=== PATIENT | female | born 1975 ===

== ENCOUNTER 2024-10-04 09:26 | Observation (INO) | payer OTHER ==
[2024-10-04 10:09] LABS: Basophils % (A) 1 %; Eosinophils # (A) 0.2 k/uL (0-0.7); Eosinophils % (A) 3 %; HCT 42.7 % (34.0-46.0); HGB 14.4 gm/dL (11.4-16.0); Lymphocytes # (A) 2.6 k/uL (1.0-4.8); Lymphocytes % (A) 35 %; MCH 28.8 pg (25.0-35.0); MCHC 33.8 g/dL (31.0-37.0); MCV 85.2 fL (80.0-100.0); Mean Platelet Volume 8.6; Monocytes # (A) 0.3 k/uL (0-1.0); Monocytes % (A) 4 %; Neutrophils # (A) 4.2 k/uL (1.3-7.7); Neutrophils % (A) 57 %; Platelet Count 241 k/uL (150-450); RBC 5.01 m/uL (3.80-5.40); RDW 12.6 % (11.5-15.5); WBC 7.3 k/uL (3.8-10.6)
--- NOTE | 2024-10-04 10:17 | XR ---
2 view chest HISTORY: Dysrhythmia. COMPARISON: None TECHNIQUE: PA and lateral views chest obtained. FINDINGS: The lungs are clear of consolidative, interstitial or masslike opacity. There is no pleural effusion, pleural thickening or pneumothorax. The heart, pulmonary vasculature, mediastinum and yadi are within normal limits. The osseous structures and soft tissues of the thorax are intact. IMPRESSION: No significant abnormality. No acute cardiopulmonary disease. [facility], , 10/04/2024 10:14 AM
[2024-10-04 10:19] LABS: Partial Thromboplastin Time 23.9 sec (22.0-30.0); Prothrombin Time 10.8 sec (10.0-12.5)
[2024-10-04 10:23] LABS: ALT 31 U/L (4-34); AST 21 U/L (14-36); African American GFR (CKD) >90 (>60 ml/min/1.73 sqM); Albumin 4.7 g/dL (3.5-5.0); Alkaline Phosphatase 98 U/L (38-126); Anion Gap 8 mmol/L; Blood Urea Nitrogen 12 mg/dL (7-17); Calcium 9.4 mg/dL (8.4-10.2); Carbon Dioxide 24 mmol/L (22-30); Chloride 108 mmol/L (98-107); Glucose 117 mg/dL (74-99); Non-African American GFR(CKD) >90 (>60 ml/min/1.73 sqM); Potassium 3.8 mmol/L (3.5-5.1); Sodium 140 mmol/L (137-145); Total Bilirubin 0.7 mg/dL (0.2-1.3); Total Protein 7.8 g/dL (6.3-8.2)
[2024-10-04] MEDS ORDERED: NITROGLYCERIN SL TABS 0.4 MG TAB SUBLINGUAL PRN (11:23)
--- NOTE | 2024-10-04 11:23 | ED ---
Arrhythmia/Palpitations HPI - General Chief Complaint: Arrhythmia/Palpitations Stated Complaint: Chest pain,heart palp. Time Seen by Provider: 10/04/24 09:40 Source: patient, family, RN notes reviewed Mode of arrival: ambulatory Limitations: language barrier - History of Present Illness Initial Comments: 49-year-old female presents emergency department chief complaint of chest discomfort, palpitations. Patient states she denies does not feel well she has left-sided symptoms. She also complains of tingling of her upper and lower extremities bilaterally. Denies any focal weakness. Patient states she has had some issues in the past which her potassium was low. She does take multiple supplements she does have a history of hypertension. Denies any prior cardiac stents. - Related Data Home Medications Medication Instructions Recorded Confirmed Cholecalciferol (Vitamin D3) 50 mcg PO DAILY 10/04/24 10/04/24 [Vitamin D3 (50 Mcg = 2000 Iu)] Cyanocobalamin (Vitamin B-12) 1,000 mcg PO DAILY 10/04/24 10/04/24 [Vitamin B-12] Magnesium Oxide [Mag-Ox] 250 mg PO BID 10/04/24 10/04/24 amLODIPine [Norvasc] 10 mg PO DAILY 10/04/24 10/04/24 Allergies Allergy/AdvReac Type Severity Reaction Status Date / Time No Known Allergies Allergy Verified 10/04/24 12:16 Review of Systems ROS Statement: Those systems with pertinent positive or pertinent negative responses have been documented in the HPI. ROS Other: All systems not noted in ROS Statement are negative. Past Medical History Past Medical History: Hypertension Past Surgical History: Section Smoking Status: Never smoker Past Alcohol Use History: None Reported Past Drug Use History: None Reported General Exam Limitations: language barrier General appearance: alert, in no apparent distress Head exam: Present: atraumatic, normocephalic, normal inspection Eye exam: Present: normal appearance, PERRL, EOMI. Absent: scleral icterus, conjunctival injection, periorbital swelling ENT exam: Present: normal exam, normal oropharynx, mucous membranes moist Neck exam: Present: normal inspection. Absent: tenderness, meningismus, l ymphadenopathy Respiratory exam: Present: normal lung sounds bilaterally. Absent: respiratory distress, wheezes, rales, rhonchi, stridor Cardiovascular Exam: Present: regular rate, normal rhythm, normal heart sounds. Absent: systolic murmur, diastolic murmur, rubs, gallop, clicks GI/Abdominal exam: Present: soft, normal bowel sounds. Absent: distended, tenderness, guarding, rebound, rigid Course Vital Signs 10/04/24 10/04/24 10/04/24 09:34 10:02 10:10 Temperature 98.4 F 98.7 F Pulse Rate 80 81 Pulse Rate [ 78 Mainstreaming Facilitator ] Respiratory 18 16 Rate Blood Pressure 125/79 129/80 O2 Sat by Pulse 100 99 Oximetry 10/04/24 10/04/24 10/04/24 11:02 12:05 13:13 Temperature 98.1 F 97.7 F Pulse Rate 75 78 74 Pulse Rate [ Mainstreaming Facilitator ] Respiratory 16 16 16 Rate Blood Pressure 120/73 122/72 112/71 O2 Sat by Pulse 98 99 98 Oximetry EKG Findings - EKG Comments: EKG Findings:: EKG performed at 9: 51 sinus rhythm rate of 76 ND 183 QRS 96 QT/QTc 373/403 - EKG Results: EKG: interpreted by YEMI Medical Decision Making - Medical Decision Making Was pt. sent in by a medical professional or institution (, PA, USER INTERFACE DESIGNER, urgent care, hospital, or half-way...) When possible be specific @ -No Did you speak to anyone other than the patient for history (EMS, parent, family, police, friend...)? What history was obtained from this source @ -No Did you review nursing and triage notes (agree or disagree)? Why? @ -I reviewed and agree with nursing and triage notes Were old charts reviewed (outside hosp., previous admission, EMS record, old EKG, old radiological studies, urgent care reports/EKG's, half-way records)? Report findings @ -No old charts were reviewed Differential Diagnosis (chest pain, altered mental status, abdominal pain women, abdominal pain men, vaginal bleeding, weakness, fever, dyspnea, syncope, headache, dizziness, GI bleed, back pain, seizure, CVA, palpatations, mental health, musculoskeletal)? @ -Differential Chest Pain: Stable Angina, Unstable Angina, STEMI, NSTEMI Aortic Dissection, Pneumothorax, Musculoskeletal, Esophageal Spasm GERD, Cholecystitis, Pancreatitis, Zoster, this is not meant to be an all-inclusive list. EKG interpreted by me (3pts min.). @ -As above X-rays interpreted by me (1pt min.). @ -Chest x-ray shows no acute cardiopulmonary process CT interpreted by me (1pt min.). @ -None done U/S interpreted by me (1pt. min.). @ -None done What testing was considered but not performed or refused? (CT, X-rays, U/S, labs)? Why? @ -None What meds were considered but not given or refused? Why? @ -None Did you discuss the management of the patient with other professionals (professionals i.e. , PA, USER INTERFACE DESIGNER, lab, RT, psych nurse, nephrology social worker, skylights assembler, teacher, customs and border protection officer, director case)? Give summary @ -Dr. Walsh for admission Was smoking cessation discussed for >3mins.? @ -No Was critical care preformed (if so, how long)? @ -No Were there social determinants of health that impacted care today? How? (Homelessness, low income, unemployed, alcoholism, drug addiction, transporta tion, low edu. Level, literacy, decrease access to med. care, penitentiary, rehab)? @ -No Was there de-escalation of care discussed even if they declined (Discuss DNR or withdrawal of care, Hospice)? DNR status @ -No What co-morbidities impacted this encounter? (DM, HTN, Smoking, COPD, CAD, Cancer, CVA, ARF, Chemo, Hep., AIDS, mental health diagnosis, sleep apnea, morbid obesity)? @ -Hypertension Was patient admitted / discharged? Hospital course, mention meds given and route, prescriptions, significant lab abnormalities, going to OR and other pertinent info. @ -Admitted patient presented for palpitations and chest pain. Patient's workup is negative this time she will be admitted for cardiac rule out repeat laboratory studies. Undiagnosed new problem with uncertain prognosis? @ -No Drug Therapy requiring intensive monitoring for toxicity (Heparin, Nitro, Insulin, Cardizem)? @ -No Were any procedures done? @ -No Diagnosis/symptom? @ -Chest pain Acute, or Chronic, or Acute on Chronic? @ -Acute Uncomplicated (without systemic symptoms) or Complicated (systemic symptoms)? @ -Complicated Side effects of treatment? @ -No Exacerbation, Progression, or Severe Exacerbation? @ -No Poses a threat to life or bodily function? How? (Chest pain, [place], AR, pneumonia, PE, COPD, DKA, ARF, appy, cholecystitis, CVA, Diverticulitis, Homicidal, Suicidal, threat to staff... and all critical care pts) @ -Yes ACS possibility, causing cardiac arrest. - Lab Data Result diagrams: 10/04/24 09:55 10/04/24 09:55 Lab Results 10/04/24 10/04/24 10/04/24 Range/Units 09:55 09:55 09:55 WBC 7.3 (3.8-10.6) k/uL RBC 5.01 (3.80-5.40) m/uL Hgb 14.4 (11.4-16.0) gm/dL Hct 42.7 (34.0-46.0) % MCV 85.2 (80.0-100.0) fL MCH 28.8 (25.0-35.0) pg MCHC 33.8 (31.0-37.0) g/dL RDW 12.6 (11.5-15.5) % Plt Count 241 (150-450) k/uL MPV 8.6 Neutrophils % 57 % Lymphocytes % 35 % Monocytes % 4 % Eosinophils % 3 % Basophils % 1 % Neutrophils # 4.2 (1.3-7.7) k/uL Lymphocytes # 2.6 (1.0-4.8) k/uL Monocytes # 0.3 (0-1.0) k/uL Eosinophils # 0.2 (0-0.7) k/uL Basophils # 0.0 (0-0.2) k/uL PT 10.8 (10.0-12.5) sec INR 1.0 (<1.2) APTT 23.9 (22.0-30.0) sec Sodium 140 (137-145) mmol/L Potassium 3.8 (3.5-5.1) mmol/L Chloride 108 H (98-107) mmol/L Carbon Dioxide 24 (22-30) mmol/L Anion Gap 8 mmol/L BUN 12 (7-17) mg/dL Creatinine 0.55 (0.52-1.04) mg/dL Est GFR (CKD-EPI)AfAm >90 (>60 ml/min/1.73 sqM) Est GFR (CKD-EPI)NonAf >90 (>60 ml/min/1.73 sqM) Glucose 117 H (74-99) mg/dL Calcium 9.4 (8.4-10.2) mg/dL Magnesium 2.0 (1.6-2.3) mg/dL Total Bilirubin 0.7 (0.2-1.3) mg/dL AST 21 (14-36) U/L ALT 31 (4-34) U/L Alkaline Phosphatase 98 (38-126) U/L Troponin I (0.000-0.034) ng/mL Total Protein 7.8 (6.3-8.2) g/dL Albumin 4.7 (3.5-5.0) g/dL TSH 1.550 (0.465-4.680) mIU/L 10/04/24 10/04/24 Range/Units 09:55 10:25 WBC (3.8-10.6) k/uL RBC (3.80-5.40) m/uL Hgb (11.4-16.0) gm/dL Hct (34.0-46.0) % MCV (80.0-100.0) fL MCH (25.0-35.0) pg MCHC (31.0-37.0) g/dL RDW (11.5-15.5) % Plt Count (150-450) k/uL MPV Neutrophils % % Lymphocytes % % Monocytes % % Eosinophils % % Basophils % % Neutrophils # (1.3-7.7) k/uL Lymphocytes # (1.0-4.8) k/uL Monocytes # (0-1.0) k/uL Eosinophils # (0-0.7) k/uL Basophils # (0-0.2) k/uL PT (10.0-12.5) sec INR (<1.2) APTT (22.0-30.0) sec Sodium (137-145) mmol/L Potassium (3.5-5.1) mmol/L Chloride (98-107) mmol/L Carbon Dioxide (22-30) mmol/L Anion Gap mmol/L BUN (7-17) mg/dL Creatinine (0.52-1.04) mg/dL Est GFR (CKD-EPI)AfAm (>60 ml/min/1.73 sqM) Est GFR (CKD-EPI)NonAf (>60 ml/min/1.73 sqM) Glucose (74-99) mg/dL Calcium (8.4-10.2) mg/dL Magnesium (1.6-2.3) mg/dL Total Bilirubin (0.2-1.3) mg/dL AST (14-36) U/L ALT (4-34) U/L Alkaline Phosphatase (38-126) U/L Troponin I <0.012 <0.012 (0.000-0.034) ng/mL Total Protein (6.3-8.2) g/dL Albumin (3.5-5.0) g/dL TSH (0.465-4.680) mIU/L Disposition Clinical Impression: Chest pain Disposition: ADMITTED IP TO THIS HOSP Condition: Fair Time of Disposition: 11:23
[2024-10-04] MEDS: ASPIRIN 81 MG PO STA (11:28)
--- NOTE | 2024-10-04 13:10 | P.HPIM ---
History of Present Illness H&P Date: 10/04/24 History of Presenting Illness: Patient is a pleasant 49-year-old female with a past medical history of hypertension. She presented to the emergency department with a chief complaint of chest pain and palpitations. Patient is primarily Vietnamese speaking and per her request her son is at bedside and daughter on telephone via [employer] translating. Patient was offered mopper services but declined at this time. She reports that she began having palpitations and feeling as though her heart was racing 2 days ago accompanied by chest tightness and numbness/tingling in bilateral upper and lower extremities. She reports the symptoms wax and wane and initially awoken her from sleep. She denied anything making the symptoms better or worse and denied history of this ever happening in the past. Patient denies having any fevers, chills, headache, lightheadedness, dizziness, diaphoresis, shortness of breath, cough or congestion, nausea or vomiting, or experiencing any swelling in her lower extremities. On arrival to our facility, patient underwent evaluation in the emergency department. Vital signs upon arrival show blood pressure 125/79, heart rate 80, respiratory rate 18, temp 98.4 F, and SpO2 100% on room air. EKG completed showing normal sinus rhythm with occasional PVC at 76 bpm otherwise showing no significant T wave or ST abnormalities and no signs of acute ischemia. Chest x-ray completed negative for acute cardiopulmonary process. Labs completed and reviewed. CBC unremarkable. Coagulation profile normal findings. BMP showing mild hyperchloremia with chloride of 108 otherwise normal findings. Blood glucose 117. Magnesium 2.0. Liver profile normal findings. Troponin negative at less than 0.012 and TSH also normal findings at 1.550. Patient was given aspirin 324 mg p.o. x 1 dose and admitted under our services for cardiac observation with consult to cardiology. Review of systems: Pertinent positives and negatives as discussed in HPI, a complete review of systems was performed and all other systems are negative. Physical exam: Vital signs reviewed and stable. General: Nontoxic, no distress and appears stated age. Derm: Skin warm and dry, normal coloration for ethnicity. Head: Atraumatic, normocephalic and symmetric. Eyes: EOM's intact, no lid lag, and anicteric sclera Mouth: no lip lesions, mucus membranes moist Cardiovascular: regular rate and rhythm with normal S1S2, no murmur, positive posterior tibial pulses bilaterally, and cap refill < 2 seconds. Lungs: Respirations even, regular, and unlabored on room air. Lungs CTA bilaterally, no rhonchi, no rales, no wheezing, and no accessory muscle usage. Abdominal: soft, nontender to palpation, no guarding, no appreciable organomegaly Ext: ROM intact. No gross muscle atrophy, no edema, no contractures Neuro: Speech clear, face symmetrical and CN II-XII grossly intact with no noted focal neuro deficits Psych: Alert and oriented to person, place, time, and situation. Appropriate and pleasant affect. Assessment and Plan of Care: Atypical chest pain with palpitations Intermittent bilateral upper and lower extremity paresthesias Hypertension -Cardiology consulted, appreciate recommendations -Telemetry monitoring -Trend troponins -Cardiac diet, NPO at midnight -Aspirin 81 mg daily and continue amlodipine 10 mg daily. -Lipid profile with a.m. labs. -Echocardiogram -Order placed for stat serum hCG Data and imaging reviewed: As stated above in HPI The patient is admitted with an anticipated greater than 2 midnight stay for evaluation of chest pain and palpitations CODE STATUS: Full code DVT prophylaxis: Lovenox Anticipated discharge date: 24 to [address]: Home Patient was seen independently by Nurse Practitioner. This document was prepared using [employer] dictation software. Please allow for errors in truck greaser while rare they do occur. Edilberto Blum NP rendered care for this patient independently, reviewed the findings and plan as documented in the note above and agree with plan. I did not physically speak with or examine the patient on this date. Past Medical History Past Medical History: Hypertension Past Surgical History: Section Smoking Status: Never smoker Past Alcohol Use History: None Reported Past Drug Use History: None Reported Medications and Allergies Home Medications Medication Instructions Recorded Confirmed Type Cholecalciferol (Vitamin D3) 50 mcg PO DAILY 10/04/24 10/04/24 History [Vitamin D3 (50 Mcg = 2000 Iu)] Cyanocobalamin (Vitamin B-12) 1,000 mcg PO DAILY 10/04/24 10/04/24 History [Vitamin B-12] Magnesium Oxide [Mag-Ox] 250 mg PO BID 10/04/24 10/04/24 History amLODIPine [Norvasc] 10 mg PO DAILY 10/04/24 10/04/24 History Allergies Allergy/AdvReac Type Severity Reaction Status Date / Time No Known Allergies Allergy Verified 10/04/24 12:16 Physical Exam Vitals: Vital Signs Temp Pulse Pulse Resp BP Pulse Ox 10/04/24 12:05 78 16 122/72 99 10/04/24 11:02 98.1 F 75 16 120/73 98 10/04/24 10:10 98.7 F 81 16 129/80 99 10/04/24 10:02 78 10/04/24 09:34 98.4 F 80 18 125/79 100 Intake and Output 10/03/24 10/04/24 10/04/24 22:59 06:59 14:59 Other: Weight 70 kg Results CBC & Chem 7: 10/04/24 09:55 10/04/24 09:55 Labs: Abnormal Lab Results - Last 24 Hours (Table) 10/04/24 Range/Units 09:55 Chloride 108 H (98-107) mmol/L Glucose 117 H (74-99) mg/dL
[2024-10-04] MEDS: ACETAMINOPHEN TAB 325 MG TAB PO PRN (19:59)
[2024-10-04] MEDS: MAGNESIUM OXIDE 400 MG TAB PO SCH (20:01)
[2024-10-05] MEDS ORDERED: DOBUTamine DRIP for NUC MED 500 MG in DEXTROSE/WATER 1 250ML.BAG IV PRN (08:22)
[2024-10-05 08:58] LABS: HCT 40.7 % (37.2-46.3); HGB 13.6 g/dL (12.0-15.0); MCH 28.6 pg (27.0-32.0); MCHC 33.4 g/dL (32.0-37.0); MCV 85.7 FL (80.0-97.0); Mean Platelet Volume 11.7 FL (9.5-12.2); NRBC Per 100 WBC 0 X 10*3/uL (0.00-0.01); Platelet Count 215 X 10*3/uL (140-440); RBC 4.75 X 10*6/uL (4.10-5.20); RDW 12.4 % (11.5-14.5); WBC 6.63 X 10*3/uL (4.50-10.00)
[2024-10-05] MEDS ORDERED: ASPIRIN 325 MG TAB PO SCH (09:00)
[2024-10-05 09:11] LABS: ALT 22 U/L (8-44); AST 13 U/L (13-35); Albumin 4.2 g/dL (3.8-4.9); Albumin/Globulin Ratio 1.68 Ratio (1.60-3.17); Alkaline Phosphatase 107 U/L (41-126); Blood Urea Nitrogen 14.1 mg/dL (9.0-27.0); Calcium 9.1 mg/dL (8.7-10.3); Carbon Dioxide 22.1 mmol/L (21.6-31.8); Chloride 106 mmol/L (96-109); Chol/HDL Ratio 3.71 Ratio; Globulin 2.5 g/dL (1.6-3.3); Glucose 104 mg/dL (70-110); LDL Cholesterol,Calculated 102.3 mg/dL (0.0-131.0); Magnesium 2.3 mg/dL (1.5-2.4); Potassium 4.2 mmol/L (3.5-5.5); Sodium 140 mmol/L (135-145); Total Bilirubin 0.3 mg/dL (0.3-1.2); Total Protein 6.7 g/dL (6.2-8.2)
[2024-10-05] MEDS: CHOLECALCIFEROL 25 MCG (1000 IU) TABLET PO SCH (09:38)
[2024-10-05] MEDS: amLODIPine 10 MG TAB PO SCH (09:38)
[2024-10-05] MEDS: ASPIRIN 81 MG PO SCH (09:38)
[2024-10-05] MEDS: CYANOCOBALAMIN 500 MCG TAB PO SCH (09:39)
[2024-10-05] MEDS: ENOXAPARIN 40 MG/0.4 ML SYRINGE SQ SCH (09:39)
--- NOTE | 2024-10-05 10:31 | P.CRDCN ---
History of Present Illness Consult date: 10/05/24 ( ) Consult reason: chest pain History of present illness: This is a 49-year-old female with no previous cardiac history. She has a history of hypertension. She also has history of gestational diabetes. No his tory of CVA or seizures. She is a non-smoker and no caffeine use. We have been asked to evaluate the patient for chest pain. Patient presented due to pounding in her chest and tried to take Tylenol or Motrin and it did not go away. When she is eating or sleeping it seems to be more pronounced pounding. No dizziness. She did have similar symptoms about 1 year ago and found to have a low potassium. She also had possible stress test done in November and . She denies have any cough or sputum production, no fever, no blood in her stools or urine. Blood pressure 108/73, heart rate 63, pulse ox 100% on room air. Patient only speaks Greek and family member is at the bedside to a ssist in interpreting. -EKG: Sinus rhythm with no acute ST-T wave changes -Chest x-ray: No acute findings -Laboratory studies: CBC, electrolytes renal function liver function test all within normal limits. Troponins negative x 3. hCG not detected. TSH 1.55. Triglycerides 84, cholesterol 163, LDL 102. Magnesium 2.3. -Home cardiac medications: Amlodipine 10 mg daily, magnesium oxide 250 mg twice daily. Review Of Systems: At the time of my exam: CONSTITUTIONAL: Denies fever or chills. HEENT: Denies blurred vision, vision changes, or eye pain. Denies hemoptysis CARDIOVASCULAR: Denies chest pain. Denies orthopnea. Denies PND. Denies palpitations RESPIRATORY: Denies shortness of breath. GASTROINTESTINAL: Denies abdominal pain. Denies nausea or vomiting. HEMATOLOGIC: Denies bleeding disorders. GENITOURINARY: Denies any blood in urine. SKIN: Denies puritis. Denies rash. Physical examination: Gen: This is a 49-year-old female in no acute distress VS: reviewed HEENT: Head is atraumatic, normocephalic. Pupils equal, round. Sclerae is anicteric. NECK: Supple. No JVD. LUNGS: Clear to auscultation. No wheezes or rhonchi. No intercostal retractions. HEART: Regular rate and rhythm. No murmur. ABDOMEN: Soft No tenderness. EXTREMITIES: No pedal edema. No calf tenderness. NEUROLOGICAL: Patient is awake, alert and oriented x3. Assessment: Palpitations Atypical chest pain, acute coronary syndrome ruled out Hypertension Plan: Resume patient's home cardiac medications Obtain dobutamine stress echocardiogram today Obtain 2-D echocardiogram and Doppler study to assess cardiac structure and function If testing is unremarkable, patient is cleared for discharge home. Thank you kindly for this consultation. Nurse practitioner note has been reviewed, I agree with documented findings and plan of care. Patient was seen and examined. Past Medical History Past Medical History: Hypertension History of Any Multi-Drug Resistant Organisms: None Reported Past Surgical History: Section Past Anesthesia/Blood Transfusion Reactions: No Reported Reaction Smoking Status: Never smoker Past Alcohol Use History: None Reported Past Drug Use History: None Reported Medications and Allergies Home Medications Medication Instructions Recorded Confirmed Type Cholecalciferol (Vitamin D3) 50 mcg PO DAILY 10/04/24 10/04/24 History [Vitamin D3 (50 Mcg = 2000 Iu)] Cyanocobalamin (Vitamin B-12) 1,000 mcg PO DAILY 10/04/24 10/04/24 History [Vitamin B-12] Magnesium Oxide [Mag-Ox] 250 mg PO BID 10/04/24 10/04/24 History amLODIPine [Norvasc] 10 mg PO DAILY 10/04/24 10/04/24 History Allergies Allergy/AdvReac Type Severity Reaction Status Date / Time No Known Allergies Allergy Verified 10/04/24 12:16 Physical Exam Vitals: Vital Signs Temp Pulse Pulse Pulse Resp BP BP 10/05/24 07:00 97.8 F 63 17 108/73 10/05/24 02:00 97.5 F L 60 16 107/71 10/04/24 20:00 97.6 F 68 18 116/76 10/04/24 13:20 97.9 F 72 15 136/85 10/04/24 13:13 97.7 F 74 16 112/71 10/04/24 12:05 78 16 122/72 10/04/24 11:02 98.1 F 75 16 120/73 10/04/24 10:10 98.7 F 81 16 129/80 10/04/24 10:02 78 10/04/24 09:34 98.4 F 80 18 125/79 Pulse Ox 10/05/24 07:00 100 10/05/24 02:00 100 10/04/24 20:00 100 10/04/24 13:20 100 10/04/24 13:13 98 10/04/24 12:05 99 10/04/24 11:02 98 10/04/24 10:10 99 10/04/24 10:02 10/04/24 09:34 100 Intake and Output 10/04/24 10/05/24 10/05/24 22:59 06:59 14:59 Intake Total 720 500 Balance 720 500 Intake: Oral 720 500 Other: # Voids 3 2 Results 10/05/24 05:31 10/05/24 05:31 Cardiac Enzymes 10/04/24 10/04/24 10/04/24 Range/Units 09:55 09:55 10:25 AST 21 (14-36) U/L Troponin I <0.012 <0.012 (0.000-0.034) ng/mL 10/04/24 Range/Units 14:15 AST (14-36) U/L Troponin I <0.012 (0.000-0.034) ng/mL Coagulation 10/04/24 Range/Units 09:55 PT 10.8 (10.0-12.5) sec APTT 23.9 (22.0-30.0) sec CBC 10/04/24 Range/Units 09:55 WBC 7.3 (3.8-10.6) k/uL RBC 5.01 (3.80-5.40) m/uL Hgb 14.4 (11.4-16.0) gm/dL Hct 42.7 (34.0-46.0) % Plt Count 241 (150-450) k/uL Comprehensive Metabolic Panel 10/04/24 Range/Units 09:55 Sodium 140 (137-145) mmol/L Potassium 3.8 (3.5-5.1) mmol/L Chloride 108 H (98-107) mmol/L Carbon Dioxide 24 (22-30) mmol/L BUN 12 (7-17) mg/dL Creatinine 0.55 (0.52-1.04) mg/dL Glucose 117 H (74-99) mg/dL Calcium 9.4 (8.4-10.2) mg/dL AST 21 (14-36) U/L ALT 31 (4-34) U/L Alkaline Phosphatase 98 (38-126) U/L Total Protein 7.8 (6.3-8.2) g/dL Albumin 4.7 (3.5-5.0) g/dL Current Medications Generic Name Dose Route Start Last Admin Trade Name Freq PRN Reason Stop Dose Admin Acetaminophen 650 mg 10/04/24 19:50 10/04/24 19:59 Acetaminophen Tab 325 Mg Tab PO 650 mg Q6HR PRN Administration Fever and/ or Pain Amlodipine Besylate 10 mg 10/05/24 09:00 Amlodipine 10 Mg Tab PO DAILY [facility] Aspirin 81 mg 10/05/24 09:00 Aspirin 81 Mg PO DAILY [facility] Cholecalciferol 50 mcg 10/05/24 09:00 Cholecalciferol 25 Mcg (1000 Iu) Tablet PO DAILY [facility] Cyanocobalamin 1,000 mcg 10/05/24 09:00 Cyanocobalamin 500 Mcg Tab PO DAILY [facility] Enoxaparin Sodium 40 mg 10/05/24 09:00 Enoxaparin 40 Mg/0.4 Ml Syringe SQ DAILY [facility] Magnesium Oxide 400 mg 10/04/24 21:00 10/04/24 20:01 Magnesium Oxide 400 Mg Tab PO 400 mg BID KEN Administration Nitroglycerin 0.4 mg 10/04/24 11:23 Nitroglycerin Sl Tabs 0.4 Mg Tab SUBLINGUAL Q5M PRN Chest Pain Intake and Output 10/04/24 10/05/24 10/05/24 22:59 06:59 14:59 Intake Total 720 500 Balance 720 500 Intake: Oral 720 500 Other: # Voids 3 2 10/04/24 09:55 10/04/24 09:55
--- NOTE | 2024-10-05 11:51 | CA ---
Stress Echo Report Arnel Live Age: 49 Gender: F : 1975 Exam Date: 10/05/2024 10:50 Exam Location: [place] [facility] Ht (in): 65 Wt (lb): 154 Ordering Physician: Luz Hicks Referring Physician: Kurt ROSA Medical Library Assistant: ELBERT, Technologist Procedure CPT: Indication: palpitations, chest pain ICD-9 Codes: Rhythm: Patient History: Cardiac Medications: Medications in past 24 hours: Contrast: Stress Results Protocol: Kaz Total dose(mL): Exercise Duration (min:sec): 7:[address] Depression (mm): 0 Angina Score: 0 Redd Score: 7.68 METS: 9.3 Resting HR: 69 Resting BP: 93 / 51 Peak HR: 165 Peak BP: 120 / 66 Max Predicted HR: 173 95 % Max Predicted HR Target HR: 147 Double Product: [id number] Stress Summary: The patient's target heart rate was achieved BP Response: Reason for Termination: MAX EXERTION/TARGET HR Cardiac Symptoms: NO SYMPTOMS ECG Analysis Resting ECG: Normal sinus rhythm, normal ECG Stress ECG: No abnormal ST/T wave changes with exercise Arrhythmia: None Echo Analysis Resting Echo: Normal resting echocardiogram. Peak Echo Analysis: Normal treadmill stress echocardiogram. MEASUREMENTS (Male/Female) Normal Values CONCLUSIONS Patient falls into low-risk group (DTS >= +5). This associates the patient with an annual CV mortality <= 0.5%. Average exercise tolerance with normal electrocardiographic response to exercise Normal stress echocardiogram with no evidence of stress-induced ischemia Dr. Sugey Betancur MD (Electronically Signed) Final Date: 05 October 2024 11:50
[2024-10-05 12:59] VITALS: BP 96/64; PULSE 68; RESP 16; TEMP 98
--- NOTE | 2024-10-05 13:29 | CA ---
Transthoracic Echo Report Name: Arnel Live Age: 49 Gender: F : 1975 Exam Date: 10/05/2024 11:16 Exam Location: [place] [facility] Ht (in): 65 Wt (lb): 154 Ordering Physician: Anirudh Herman Attending/Referring Phys: FLORIN, Virgil Solar Photovoltaic Designer Bernadette Joy RDCS Procedure CPT: Indications: Chest Pain Cardiac Hx: Technical Quality: Good Contrast 1: Total Dose (mL): Contrast 2: Total Dose (mL): MEASUREMENTS (Male / Female) Normal Values 2D ECHO LV Diastolic Diameter PLAX 5.2 cm 4.2 - 5.9 / 3.9 - 5.3 cm LV Systolic Diameter PLAX 3.8 cm IVS Diastolic Thickness 0.7 cm 0.6 - 1.0 / 0.6 - 0.9 cm LVPW Diastolic Thickness 0.8 cm 0.6 - 1.0 / 0.6 - 0.9 cm LV Relative Wall Thickness 0.3 LVOT Diameter 2.2 cm Aortic Root Diameter 2.6 cm LV Diastolic Volume MOD BP 99.3 cm??? 67 - 155 / 56 - 104 cm??? LV Systolic Volume MOD BP 40.8 cm??? 22 - 58 / 19 - 49 cm??? LV Ejection Fraction MOD BP 58.9 % >= 55 % LV Cardiac Index MOD BP 2723.3 cm???/min???m??? LV Diastolic Volume MOD 4C 97.8 cm??? LV Systolic Volume MOD 4C 42.1 cm??? LV Ejection Fraction MOD 4C 57.0 % LV Cardiac Index MOD 4C 2596.8 cm???/min???m??? LV Diastolic Length 4C 6.9 cm LV Systolic Length 4C 5.8 cm LV Diastolic Volume MOD 2C 95.1 cm??? LV Systolic Volume MOD 2C 37.8 cm??? LV Ejection Fraction MOD 2C 60.3 % LV Cardiac Index MOD 2C 2669.8 cm???/min???m??? LV Diastolic Length 2C 7.3 cm LV Systolic Length 2C 5.5 cm LA Volume 68.4 cm??? 18 - 58 / 22 - 52 cm??? LA Volume Index 38.0 cm???/m??? 16 - 28 cm???/m??? Ascending Aorta Diameter 2.8 cm DOPPLER AV Peak Velocity 136.3 cm/s AV Peak Gradient 7.4 mmHg AV Mean Velocity 96.8 cm/s AV Mean Gradient 4.2 mmHg AV Velocity Time Integral 26.6 cm LVOT Peak Velocity 97.6 cm/s LVOT Peak Gradient 3.8 mmHg LVOT Velocity Time Integral 19.2 cm LVOT Stroke Volume 71.1 cm??? LVOT Stroke Volume Index 40.2 ml/m??? LVOT Cardiac Index 3315.5 cm???/min???m??? AV Area Cont Eq vti 2.7 cm??? AV Area Cont Eq pk 2.7 cm??? MV Area PHT 7.3 cm??? Mitral E Point Velocity 59.4 cm/s Mitral A Point Velocity 49.9 cm/s Mitral E to A Ratio 1.2 MV Deceleration Time 104.4 ms TR Peak Velocity 250.9 cm/s TR Peak Gradient 25.2 mmHg Right Atrial Pressure 5.0 mmHg Pulmonary Artery Systolic Pressu 30.2 mmHg Right Ventricular Systolic Press 30.2 mmHg PV Peak Velocity 112.0 cm/s PV Peak Gradient 5.0 mmHg FINDINGS Left Ventricle Left ventricular ejection fraction is estimated at 55-60 %. Left ventricular cavity size normal. Left ventricular wall thickness normal. No obvious regional wall motion abnormalities. Right Ventricle Normal right ventricular size and function. Right ventricular systolic pressure within normal limits. Right Atrium Normal right atrial size. Left Atrium Moderately increased left atrial volume. Mitral Valve Structurally normal mitral valve. No evidence for mitral valve prolapse. No mitral stenosis. Wlxw-ry-vejxumbh mitral regurgitation. Aortic Valve Trileaflet aortic valve. No aortic valve stenosis or regurgitation. Tricuspid Valve Structurally normal tricuspid valve. No tricuspid stenosis. Mild tricuspid regurgitation. Pulmonic Valve Structurally normal pulmonic valve. No pulmonic stenosis. Trace pulmonic regurgitation. Pericardium No pericardial effusion. Aorta Normal size aortic root and proximal ascending aorta. CONCLUSIONS 1. Normal left ventricular size and systolic function 2. Mild to moderate mitral is mild tricuspid regurgitation Previewed by: Dr. Sugey Betancur MD (Electronically Signed) Final Date: 05 October 2024 13:28
--- NOTE | 2024-10-05 14:03 | P.DS ---
Providers Date of admission: 10/04/24 11:13 Expected date of discharge: 10/05/24 Attending physician: Gómez Walsh Consults: 10/04/24 11:23 Consult Physician Urgent Consulting Provider: [facility] Consult Reason/Comments: chest pain Do you want consulting provider notified?: Yes Primary care physician: Physician Nonstaff Hospital Course: Discharge Diagnosis: Atypical chest pain with palpitations. Acute Coronary event ruled out. Intermittent bilateral upper and lower extremity paresthesias. Hypertension Hospital Course: Patient is a pleasant 49-year-old female with a past medical history of hypertension. She presented to the emergency department with a chief complaint of chest pain and palpitations. Patient is primarily Uzbek speaking and per her request her son is at bedside and daughter on telephone via [employer] translating. Patient was offered associate theatre professor services but declined at this time. She reports that she began having palpitations and feeling as though her heart was racing 2 days ago accompanied by chest tightness and numbness/tingling in bilateral upper and lower extremities. She reports the symptoms wax and wane and initially awoken her from sleep. She denied anything making the symptoms better or worse and denied history of this ever happening in the past. Patient denies having any fevers, chills, headache, lightheadedness, dizziness, diaphoresis, shortness of breath, cough or congestion, nausea or vomiting, or experiencing any swelling in her lower extremities. On arrival to our facility, patient underwent evaluation in the emergency department. Vital signs upon arrival show blood pressure 125/79, heart rate 80, respiratory rate 18, temp 98.4 F, and SpO2 100% on room air. EKG completed showing normal sinus rhythm with occasional PVC at 76 bpm otherwise showing no significant T wave or ST abnormalities and no signs of acute ischemia. Chest x-ray completed negative for acute cardiopulmonary process. Labs completed and reviewed. CBC unremarkable. Coagulation profile normal findings. BMP showing mild hyperchloremia with chloride of 108 otherwise normal findings. Blood glucose 117. Magnesium 2.0. Liver profile normal findings. Troponin negative at less than 0.012 and TSH also normal findings at 1.550. Patient was given aspirin 324 mg p.o. x 1 dose and admitted under our services for cardiac observation with consult to cardiology. Troponins were trended overnight all negative at less th an 0.012 x 3 draws. Serum hCG was negative. Lipid profile was unremarkable. Echocardiogram completed showing a preserved EF of 55 to 60% with mild to moderate mitral regurgitation and mild tricuspid regurgitation. Stress echocardiogram was completed showing average exercise tolerance with minimal electrocardiographic response to exercise showing a normal stress echocardiogram with no evidence of stress-induced ischemia. Patient had no further episodes of chest pain or palpitations since arrival to our facility. She currently denies having any complaints at this time. Discussed results with cardiology AB INITIO ETL DEVELOPER and patient cleared from cardiac perspective for discharge. Patient is medically stable at this time and to follow-up outpatient with PCP in 1 to 2 days and with corporate services manager in 1 to 2 weeks. No medication changes were made during this admission. Physical exam: Vital signs reviewed and stable. General: Nontoxic, no distress and appears stated age. Derm: Skin warm and dry, normal coloration for ethnicity. Head: Atraumatic, normocephalic and symmetric. Eyes: EOM's intact, no lid lag, and anicteric sclera Mouth: no lip lesions, mucus membranes moist Cardiovascular: regular rate and rhythm with normal S1S2, no murmur, positive posterior tibial pulses bilaterally, and cap refill < 2 seconds. Lungs: Respirations even, regular, and unlabored on room air. Lungs CTA bilaterally, no rhonchi, no rales, no wheezing, and no accessory muscle usage. Abdominal: soft, nontender to palpation, no guarding, no appreciable organomegaly Ext: ROM intact. No gross muscle atrophy, no edema, no contractures Neuro: Speech clear, face symmetrical and CN II-XII grossly intact with no noted focal neuro deficits Psych: Alert and oriented to person, place, time, and situation. Appropriate and pleasant affect. A total of 32 minutes of time were spent preparing this complex discharge summary. Pt was discharged on 10/05/2024 at 1:43 PM Patient was seen independently by Nurse Practitioner. This document was prepared using [email or web address] dictation software. Please allow for errors in automatic grinding machine operator while rare they do occur. Edilberto Blum NP rendered care for this patient independently, reviewed the findings and plan as documented in the note above. I did not physically speak with or examine the patient on this date. : Patient Condition at Discharge: Stable Plan - Discharge Summary Discharge Rx Participant: Yes New Discharge Prescriptions: Continue Magnesium Oxide [Mag-Ox] 250 mg PO BID Cyanocobalamin (Vitamin B-12) [Vitamin B-12] 1,000 mcg PO DAILY amLODIPine [Norvasc] 10 mg PO DAILY Cholecalciferol (Vitamin D3) [Vitamin D3 (50 Mcg = 2000 Iu)] 50 mcg PO DAILY Discharge Medication List Cholecalciferol (Vitamin D3) [Vitamin D3 (50 Mcg = 2000 Iu)] 50 mcg PO DAILY 10/04/24 [History] Cyanocobalamin (Vitamin B-12) [Vitamin B-12] 1,000 mcg PO DAILY 10/04/24 [History] Magnesium Oxide [Mag-Ox] 250 mg PO BID 10/04/24 [History] amLODIPine [Norvasc] 10 mg PO DAILY 10/04/24 [History] Follow up Appointment(s)/Referral(s): Sugey Betancur MD [STAFF PHYSICIAN] - 1-2 Days (Please call office and schedule appointment first thing tomorrow morning.) Jasson Lopez MD [STAFF PHYSICIAN] - 1 Week Patient Instructions/Handouts: Heart Palpitations (DC) Activity/Diet/Wound Care/Special Instructions: Activity: As tolerated. Take breaks as needed. Diet: Heart healthy and carb consistent diet. Avoid salts, or foods with hidden salts such as canned or boxed foods and frozen dinners. Extra salt makes your heart work harder and traps the fluid in your body for longer. Special Instructions: Take all of your medications as directed and remember to keep all of your doctor's appointments and follow-up as needed. Thank you for allowing us to participate in your care, it was truly a pleasure having you for our patient!!! . Discharge Disposition: HOME SELF-CARE
== END 2024-10-05 14:57 | disposition home or self-care (01) ==
LOC: EC 09:26 → 6NMEDSUR 11:13
PROVIDERS: ADMIT Student in an Organized Health Care Education/Training Program; ATTEND Student in an Organized Health Care Education/Training Program
DX: R07.89 Other chest pain (principal); R20.2 Paresthesia of skin; R00.2 Palpitations; I10 Essential (primary) hypertension; R20.0 Anesthesia of skin; E87.8 Other disorders of electrolyte and fluid balance, not elsewhere classified; I49.3 Ventricular premature depolarization; Z79.899 Other long term (current) drug therapy; Z86.32 Personal history of gestational diabetes
CPT/HCPCS: 96372; 99285; 36415; 93005; 93306; 93351; 80061; 80053 ×2; 84443; 83735 ×2; 84484; 85025; 85027; 85610; 85730; 84703; 71046; G0378 ×2; J1650

== ENCOUNTER 2025-03-12 21:36 | Emergency (ER) | payer OTHER ==
[2025-03-12 22:29] LABS: Appearance,Urine Clear (Clear); Bacteria,Urine Rare /hpf; Bilirubin,Urine Negative (Negative); Blood,Urine Trace (Negative); Budding Yeast,Urine Rare /hpf; Color,Urine Colorless; Glucose,Urine (UA) Negative (Negative); Ketones,Urine Negative (Negative); Leukocyte Esterase,Urine Negative (Negative); Nitrite,Urine Negative (Negative); Protein,Urine Negative (Negative); RBC,Urine 1 /hpf (0-5); Specific Gravity,Urine 1.005 (1.001-1.035); Squamous Epithelial Cell,Urine <1 /hpf (0-4); Urobilinogen,Urine <2.0 mg/dL (<2.0); WBC,Urine <1 /hpf (0-5)
--- NOTE | 2025-03-12 22:51 | ED ---
Female Urogenital HPI - General Source: patient, RN notes reviewed Mode of arrival: ambulatory Limitations: language barrier - History of Present Illness MD Complaint: dysuria Onset/Timin -: days(s) Radiation: L flank, R flank Severity scale (1-10): 10 Quality: sharp Consistency: intermittent <Claudy Gilbert - Last Filed: 03/13/25 04:15> <Gilberto Howard - Last Filed: 03/15/25 08:44> - General Chief complaint: Urogenital Stated complaint: Abd pain Time Seen by Provider: 03/12/25 21:52 - History of Present Illness Initial comments: This is a 49-year-old female with history of hypertension presenting with son as lead infrastructure architect for bilateral intermittent flank pain 10) x 4 days. Patient endorses associated dysuria and increased urinary frequency. Endorses use of Tylenol with minimal relief. Denies fever, chills, hematuria, abdominal pain, N/V/D. (Claudy Gilbert) - Related Data Home Medications Medication Instructions Recorded Confirmed Cholecalciferol (Vitamin D3) 50 mcg PO DAILY 10/04/24 10/04/24 [Vitamin D3 (50 Mcg = 2000 Iu)] Cyanocobalamin (Vitamin B-12) 1,000 mcg PO DAILY 10/04/24 10/04/24 [Vitamin B-12] Magnesium Oxide [Mag-Ox] 250 mg PO BID 10/04/24 10/04/24 amLODIPine [Norvasc] 10 mg PO DAILY 10/04/24 10/04/24 Previous Rx's Medication Instructions Recorded Docusate [Colace] 100 mg PO DAILY #10 capsule 03/13/25 HYDROcodone/APAP 5-325MG [Mobile 1 tab PO Q6HR PRN 5 Days #20 tab 03/13/25 5-325] Miconazole Nitrate 4%/2% [Monistat 1 supp VAGINAL HS #3 kit 03/13/25 3 Vaginal] Pantoprazole [Protonix] 40 mg PO DAILY #10 tab 03/13/25 Allergies Allergy/AdvReac Type Severity Reaction Status Date / Time No Known Allergies Allergy Verified 03/12/25 21:44 Review of Systems ROS Other: All systems not noted in ROS Statement are negative. <Claudy Gilbert - Last Filed: 03/13/25 04:15> ROS Other: All systems not noted in ROS Statement are negative. <Gilberto Howard - Last Filed: 03/15/25 08:44> ROS Statement: Those systems with pertinent positive or pertinent negative responses have been documented in the HPI. Past Medical History Past Medical History: Hypertension History of Any Multi-Drug Resistant Organisms: None Reported Past Surgical History: Section Past Anesthesia/Blood Transfusion Reactions: No Reported Reaction Past Psychological History: No Psychological Hx Reported Smoking Status: Never smoker Past Alcohol Use History: None Reported Past Drug Use History: None Reported <Claudy Gilbert - Last Filed: 03/13/25 04:15> General Exam General appearance: alert, in no apparent distress Head exam: Present: atraumatic, normocephalic, normal inspection Eye exam: Present: normal appearance, PERRL, EOMI. Absent: scleral icterus, conjunctival injection, periorbital swelling ENT exam: Present: normal exam, mucous membranes moist Neck exam: Present: normal inspection. Absent: tenderness, meningismus, lymphad enopathy Respiratory exam: Present: normal lung sounds bilaterally. Absent: respiratory distress, wheezes, rales, rhonchi, stridor Cardiovascular Exam: Present: regular rate, normal rhythm, normal heart sounds. Absent: systolic murmur, diastolic murmur, rubs, gallop, clicks GI/Abdominal exam: Present: soft, normal bowel sounds. Absent: distended, tenderness, guarding, rebound, rigid Extremities exam: Present: normal inspection, full ROM, normal capillary refill. Absent: tenderness, pedal edema, joint swelling, calf tenderness Back exam: Present: CVA tenderness (R). Absent: CVA tenderness (L) Neurological exam: Present: alert, oriented X3, CN II-XII intact Psychiatric exam: Present: normal affect, normal mood Skin exam: Present: warm, dry, intact, normal color. Absent: rash <Claudy Gilbert - Last Filed: 03/13/25 04:15> Course Vital Signs 03/12/25 03/13/25 03/13/25 21:40 01:50 05:04 Temperature 98.0 F 97.9 F 98.3 F Pulse Rate 68 58 L 65 Respiratory 18 14 16 Rate Blood Pressure 138/88 123/80 108/72 O2 Sat by Pulse 100 100 98 Oximetry 03/13/25 03/13/25 07:00 11:34 Temperature 98 F 98.1 F Pulse Rate 72 69 Respiratory 16 18 Rate Blood Pressure 118/78 113/70 O2 Sat by Pulse 99 98 Oximetry Medical Decision Making - Lab Data Result diagrams: 03/13/25 01:19 03/13/25 01:19 <VladimirClaudy - Last Filed: 03/13/25 04:15> - Lab Data Result diagrams: 03/13/25 01:19 03/13/25 01:19 <Gilberto Howard - Last Filed: 03/15/25 08:44> - Medical Decision Making Was pt. sent in by a medical professional or institution (, PA, HOME HEALTH AIDE, urgent care, hospital, or penitentiary...) When possible be specific @ -No Did you speak to anyone other than the patient for history (EMS, parent, family, police, friend...)? What history was obtained from this source @ -No Did you review nursing and triage notes (agree or disagree)? Why? @ -I reviewed and agree with nursing and triage notes Were old charts reviewed (outside hosp., previous admission, EMS record, old EKG, old radiological studies, urgent care reports/EKG's, penitentiary records)? Report findings @ -No old charts were reviewed Differential Diagnosis (chest pain, altered mental status, abdominal pain women, abdominal pain men, vaginal bleeding, weakness, fever, dyspnea, syncope, headache, dizziness, GI bleed, back pain, seizure, CVA, palpatations, mental health, musculoskeletal)? @ -Differential Back Pain: Strain, zoster, cauda equina syndrome, epidural abscess, vertebral osteomyelitis, discitis, fracture, subluxation, disc herniation, DJD, spinal stenosis, dissection, AAA, pancreatitis, peptic ulcer disease, pyelonephritis, kidney stone, this is not meant to be an all-inclusive list. EKG interpreted by me (3pts min.). @ -Not done X-rays interpreted by me (1pt min.). @ -None done CT interpreted by me (1pt min.). @ -Abdomen/pelvic CT shows cholelithiasis without ductal dilation, unremarkable pancreas without ductal dilation and no indication of nephrolithiasis or hydronephrosis. U/S interpreted by me (1pt. min.). @ -None done What testing was considered but not performed or refused? (CT, X-rays, U/S, labs)? Why? @ -None What meds were considered but not given or refused? Why? @ -None Did you discuss the management of the patient with other professionals (oumou moran i.e. , PA, HOME HEALTH AIDE, lab, RT, psych nurse, social insurance administrator, monitoring engineer, teacher, credit officer, machine adjuster leader case trim)? Give summary @ -Marie Raina from [facility] contacted for admission for further treatment, pain control and workup. Was smoking cessation discussed for >3mins.? @ -No Was critical care preformed (if so, how long)? @ -No Were there social determinants of health that impacted care today? How? (Homelessness, low income, unemployed, alcoholism, drug addiction, transportation, low edu. Level, literacy, decrease access to med. care, skilled nursing, rehab)? @ -No Was there de-escalation of care discussed even if they declined (Discuss DNR or withdrawal of care, Hospice)? DNR status @ -No What co-morbidities impacted this encounter? (DM, HTN, Smoking, COPD, CAD, Cancer, CVA, ARF, Chemo, Hep., AIDS, mental health diagnosis, sleep apnea, morbid obesity)? @ -None Was patient admitted / discharged? Hospital course, mention meds given and route, prescriptions, significant lab abnormalities, going to OR and other pertinent info. @ -UA shows trace blood and and negative urine hCG. Abdomen/pelvic CT shows cholelithiasis without ductal dilation, unremarkable pancreas without ductal dilation and no indication of nephrolithiasis or hydronephrosis. Lab work significant for elevated lipase 2256. Otherwise largely unremarkable. Patient initially provided IM Toradol and morphine. P.o. mag citrate provided for suspected constipation as well as IV normal saline. Patient provided additional IV normal saline upon discovery of elevated lipase. Due to severely elevated lipase levels without known cause, Marie Paris from [facility] contacted for admission for further treatment, pain control and workup. Patient discussed with Dr. Howard. Undiagnosed new problem with uncertain prognosis? @ -No Drug Therapy requiring intensive monitoring for toxicity (Heparin, Nitro, Insu mouna, Cardizem)? @ -No Were any procedures done? @ -No Diagnosis/symptom? @ -Pancreatitis, cholelithiasis Acute, or Chronic, or Acute on Chronic? @ -Acute Uncomplicated (without systemic symptoms) or Complicated (systemic symptoms)? @ -Complicated Side effects of treatment? @ -No Exacerbation, Progression, or Severe Exacerbation? @ -No Poses a threat to life or bodily function? How? (Chest pain, USA, PA, pneumonia, PE, COPD, DKA, ARF, appy, cholecystitis, CVA, Diverticulitis, Homicidal, Suicidal, threat to staff... and all critical care pts) @ -No (Claudy Gilbert) - Lab Data Lab Results 03/12/25 03/12/25 03/13/25 Range/Units 21:57 21:57 01:19 WBC 7.92 (4.50-10.00) 10*3/uL RBC 4.55 (4.10-5.20) 10*6/uL Hgb 13.2 (12.0-15.0) g/dL Hct 38.1 (37.2-46.3) % MCV 83.7 (80.0-97.0) fL MCH 29.0 (27.0-32.0) pg MCHC 34.6 (32.0-37.0) g/dL Plt Count 200 (140-440) 10*3/uL MPV 11.5 (9.5-12.2) fL Immature Gran % (Auto) 0.3 % Neutrophils % 47.2 % Lymphocytes % 42.9 % Monocytes % 5.8 % Eosinophils % 3.0 % Basophils % 0.8 % Immature Gran # 0.02 (0.00-0.04) 10*3/uL Neutrophils # 3.74 (1.80-7.70) 10*3/uL Lymphocytes # 3.40 (0.90-5.00) 10*3/uL Monocytes # 0.46 (0.20-1.00) 10*3/uL Eosinophils # 0.24 (0.04-0.35) 10*3/uL Basophils # 0.06 (0.00-0.10) 10*3/uL Sodium (137-145) mmol/L Potassium (3.5-5.1) mmol/L Chloride (98-107) mmol/L Carbon Dioxide (22-30) mmol/L Anion Gap mmol/L BUN (7-17) mg/dL Creatinine (0.52-1.04) mg/dL Est GFR (CKD-EPI)AfAm (>60 ml/min/1.73 sqM) Est GFR (CKD-EPI)NonAf (>60 ml/min/1.73 sqM) Glucose (74-99) mg/dL Plasma Lactic Acid Kirby (0.7-2.0) mmol/L Calcium (8.4-10.2) mg/dL Total Bilirubin (0.2-1.3) mg/dL AST (14-36) U/L ALT (4-34) U/L Alkaline Phosphatase (38-126) U/L Total Protein (6.3-8.2) g/dL Albumin (3.5-5.0) g/dL Lipase (23-300) U/L Urine Color Colorless Urine Appearance Clear (Clear) Urine pH 7.0 (5.0-8.0) Ur Specific [place] 1.005 (1.001-1.035) Urine Protein Negative (Negative) Urine Glucose (UA) Negative (Negative) Urine Ketones Negative (Negative) Urine Blood Trace H (Negative) Urine Nitrite Negative (Negative) Urine Bilirubin Negative (Negative) Urine Urobilinogen <2.0 (<2.0) mg/dL Ur Leukocyte Esterase Negative (Negative) Urine RBC 1 (0-5) /hpf Urine WBC <1 (0-5) /hpf Ur Squamous Epith Cells <1 (0-4) /hpf Urine Bacteria Rare H (None) /hpf Urine Yeast (Budding) Rare H (None) /hpf Urine HCG, Qual Not Detected (Not Detectd) 03/13/25 03/13/25 Range/Units 01:19 01:19 WBC (4.50-10.00) 10*3/uL RBC (4.10-5.20) 10*6/uL Hgb (12.0-15.0) g/dL Hct (37.2-46.3) % MCV (80.0-97.0) fL MCH (27.0-32.0) pg MCHC (32.0-37.0) g/dL Plt Count (140-440) 10*3/uL MPV (9.5-12.2) fL Immature Gran % (Auto) % Neutrophils % % Lymphocytes % % Monocytes % % Eosinophils % % Basophils % % Immature Gran # (0.00-0.04) 10*3/uL Neutrophils # (1.80-7.70) 10*3/uL Lymphocytes # (0.90-5.00) 10*3/uL Monocytes # (0.20-1.00) 10*3/uL Eosinophils # (0.04-0.35) 10*3/uL Basophils # (0.00-0.10) 10*3/uL Sodium 139 (137-145) mmol/L Potassium 4.0 (3.5-5.1) mmol/L Chloride 104 (98-107) mmol/L Carbon Dioxide 26 (22-30) mmol/L Anion Gap 9 mmol/L BUN 14 (7-17) mg/dL Creatinine 0.61 (0.52-1.04) mg/dL Est GFR (CKD-EPI)AfAm >90 (>60 ml/min/1.73 sqM) Est GFR (CKD-EPI)NonAf >90 (>60 ml/min/1.73 sqM) Glucose 105 H (74-99) mg/dL Plasma Lactic Acid Kirby 0.7 (0.7-2.0) mmol/L Calcium 9.4 (8.4-10.2) mg/dL Total Bilirubin 0.4 (0.2-1.3) mg/dL AST 16 (14-36) U/L ALT 15 (4-34) U/L Alkaline Phosphatase 83 (38-126) U/L Total Protein 6.8 (6.3-8.2) g/dL Albumin 4.0 (3.5-5.0) g/dL Lipase 2256 H (23-300) U/L Urine Color Urine Appearance (Clear) Urine pH (5.0-8.0) Ur Specific [place] (1.001-1.035) Urine Protein (Negative) Urine Glucose (UA) (Negative) Urine Ketones (Negative) Urine Blood (Negative) Urine Nitrite (Negative) Urine Bilirubin (Negative) Urine Urobilinogen (<2.0) mg/dL Ur Leukocyte Esterase (Negative) Urine RBC (0-5) /hpf Urine WBC (0-5) /hpf Ur Squamous Epith Cells (0-4) /hpf Urine Bacteria (None) /hpf Urine Yeast (Budding) (None) /hpf Urine HCG, Qual (Not Detectd) Disposition Is patient prescribed a controlled substance at d/c from ED?: No Time of Disposition: 03:00 Decision Date: 03/13/25 Decision Time: 03:00 <Claudy Gilbert - Last Filed: 03/13/25 04:15> <Gilberto Howard - Last Filed: 03/15/25 08:44> Clinical Impression: Pancreatitis, Constipation, Cholelithiasis Disposition: HOME SELF-CARE Condition: Fair Prescriptions: Docusate [Colace] 100 mg PO DAILY #10 capsule Miconazole Nitrate 4%/2% [Monistat 3 Vaginal] 1 supp VAGINAL HS #3 kit HYDROcodone/APAP 5-325MG [Mobile 5-325] 1 tab PO Q6HR PRN 5 Days #20 tab PRN Reason: Pain Pantoprazole [Protonix] 40 mg PO DAILY #10 tab Referrals: Taiwo Hairston MD [Medical Doctor] - 1 Week Regina De La Torre MD [STAFF PHYSICIAN] - 1 Week
[2025-03-12] MEDS: KETOROLAC 15 MG/ML 1 ML VIAL IM STA (23:17)
[2025-03-12] MEDS: MORPHINE SULFATE 4 MG/ML SYRINGE IM STA (23:18)
--- NOTE | 2025-03-13 00:32 | CT ---
EXAM: CT Abdomen and Pelvis Without Intravenous Contrast CLINICAL HISTORY: ITS.REASON CT Reason: Bilateral recurrent flank pain TECHNIQUE: Axial computed tomography images of the abdomen and pelvis without intravenous contrast. CTDI is 9.4 mGy and DLP is 505.5 mGy-cm. This CT exam was performed using one or more of the following dose reduction techniques: automated exposure control, adjustment of the mA and/or kV according to patient size, and/or use of iterative reconstruction technique. COMPARISON: No relevant prior studies available. FINDINGS: Lung bases: Unremarkable. No mass. No consolidation. ABDOMEN: Liver: Unremarkable. Gallbladder and bile ducts: Cholelithiasis. No ductal dilation. Pancreas: Unremarkable. No ductal dilation. Spleen: Unremarkable. No splenomegaly. Adrenals: Unremarkable. No mass. Kidneys and ureters: Unremarkable. No hydronephrosis, nephrolithiasis, or obstructive uropathy. Stomach and bowel: Unremarkable. No obstruction. No mucosal thickening. PELVIS: Appendix: No findings to suggest acute appendicitis. Bladder: Unremarkable. No stones. Reproductive: Unremarkable as visualized. ABDOMEN and PELVIS: Intraperitoneal space: Unremarkable. No free air. No significant fluid collection. Bones/joints: No acute fracture. No dislocation. Soft tissues: Unremarkable. Vasculature: Unremarkable. No abdominal aortic aneurysm. Lymph nodes: Unremarkable. No enlarged lymph nodes. IMPRESSION: No hydronephrosis, nephrolithiasis, or obstructive uropathy.
[2025-03-13] MEDS: MAGNESIUM CITRATE 296 ML BOTTLE PO ONE (01:25)
[2025-03-13] MEDS: SODIUM CHLORIDE 0.9% 1,000 ML IV STA ×3 (01:25→02:21)
[2025-03-13 01:45] LABS: Basophils # (A) 0.06 10*3/uL (0.00-0.10); Basophils % (A) 0.8 %; Eosinophils # (A) 0.24 10*3/uL (0.04-0.35); HCT 38.1 % (37.2-46.3); HGB 13.2 g/dL (12.0-15.0); Lymphocytes % (A) 42.9 %; MCHC 34.6 g/dL (32.0-37.0); MCV 83.7 fL (80.0-97.0); Mean Platelet Volume 11.5 fL (9.5-12.2); Monocytes # (A) 0.46 10*3/uL (0.20-1.00); Monocytes % (A) 5.8 %; Neutrophils # (A) 3.74 10*3/uL (1.80-7.70); Neutrophils % (A) 47.2 %; Platelet Count 200 10*3/uL (140-440); RBC 4.55 10*6/uL (4.10-5.20); RDW 12.4 % (11.5-14.5); WBC 7.92 10*3/uL (4.50-10.00)
[2025-03-13 02:03] LABS: ALT 15 U/L (4-34); AST 16 U/L (14-36); African American GFR (CKD) >90 (>60 ml/min/1.73 sqM); Alkaline Phosphatase 83 U/L (38-126); Anion Gap 9 mmol/L; Blood Urea Nitrogen 14 mg/dL (7-17); Calcium 9.4 mg/dL (8.4-10.2); Carbon Dioxide 26 mmol/L (22-30); Chloride 104 mmol/L (98-107); Glucose 105 mg/dL (74-99); Non-African American GFR(CKD) >90 (>60 ml/min/1.73 sqM); Sodium 139 mmol/L (137-145); Total Bilirubin 0.4 mg/dL (0.2-1.3); Total Protein 6.8 g/dL (6.3-8.2)
[2025-03-13 02:11] LABS: Lipase 2256 U/L (23-300)
[2025-03-13] MEDS ORDERED: MORPHINE SULFATE 4 MG/ML SYRINGE IV PRN (04:49)
[2025-03-13] MEDS ORDERED: KETOROLAC 15 MG/ML 1 ML VIAL IVP PRN (04:49)
[2025-03-13] MEDS ORDERED: NALOXONE 0.4 MG/ML 1 ML VIAL IV PRN (04:49)
[2025-03-13] MEDS ORDERED: ONDANSETRON 4 MG/2 ML VIAL IVP PRN (04:49)
[2025-03-13] MEDS ORDERED: ACETAMINOPHEN TAB 325 MG TAB PO PRN (04:49)
[2025-03-13] MEDS: SODIUM CHLORIDE 0.9% 1,000 ML IV SCH (05:01)
[2025-03-13] MEDS: CHOLECALCIFEROL 25 MCG (1000 IU) TABLET PO SCH (08:36)
[2025-03-13] MEDS: amLODIPine 10 MG TAB PO SCH (08:36)
[2025-03-13] MEDS: CYANOCOBALAMIN 500 MCG TAB PO SCH (08:37)
[2025-03-13] MEDS: MAGNESIUM OXIDE 400 MG TAB PO SCH (08:37)
--- NOTE | 2025-03-13 11:21 | P.HPIM ---
History of Present Illness 49-year-old female with known history of hypertension came with complaints of a bilateral intermittent flank pain radiating to the groin area. Patient denies any dysuria increased urinary frequency or urgency. He urine showed Leanna. Patient denied any fever or chills. Patient pain was a 10/10 in severity completely resolved at this time patient is able to tolerate diet at that time. CT of the abdomen was done which did not show any pancreatitis but her lipase is elevated to 2222. Although patient may have gallstones. As per the patient this is chronic and has been there for a long time. REVIEW OF SYSTEMS: All other systems are negative except those mentioned in the HPI PHYSICAL EXAMINATION: GENERAL: The patient is alert and oriented x3, not in any acute distress. Well developed, well nourished. HEENT: Pupils are round and equally reacting to light. EOMI. No scleral icterus. No conjunctival pallor. Normocephalic, atraumatic. No pharyngeal erythema. No thyromegaly. CARDIOVASCULAR: S1 and S2 present. No murmurs, rubs, or gallops. PULMONARY: Chest is clear to auscultation, no wheezing or crackles. ABDOMEN: Soft, nontender, nondistended, normoactive bowel sounds. No palpable organomegaly. MUSCULOSKELETAL: No joint swelling or deformity. EXTREMITIES: No cyanosis, clubbing, or pedal edema. NEUROLOGICAL: Gross neurological examination did not reveal any focal deficits. SKIN: No rashes. Assessment and plan -Abdominal pain her symptoms are consistent with renal calculi although there is no renal calculi that was found on the CAT scan. Patient may have passed the stone by the time she got the CAT scan. - Elevated lipase possibility of pancreatitis cannot be ruled out although there is no edema around the pancreas on the CAT scan. Patient does have a 1.6 cm gallstone which is chronic. Patient was able to tolerate diet today. As he is able to tolerate diet I will discharge the patient with referral to general surgery. Patient is wishing to go home - Possible vaginal candidiasis for which patient will be discharged on Mycostatin cream - Hypertension Patient wishes to go home because of which have not doing any further testing patient will be discharged as she is able to tolerate the diet but she is asked to come back if her pain comes back Past Medical History Past Medical History: Hypertension History of Any Multi-Drug Resistant Organisms: None Reported Past Surgical History: Section Past Anesthesia/Blood Transfusion Reactions: No Reported Reaction Past Psychological History: No Psychological Hx Reported Smoking Status: Never smoker Past Alcohol Use History: None Reported Past Drug Use History: None Reported Medications and Allergies Home Medications Medication Instructions Recorded Confirmed Type Cholecalciferol (Vitamin D3) 50 mcg PO DAILY 10/04/24 10/04/24 History [Vitamin D3 (50 Mcg = 2000 Iu)] Cyanocobalamin (Vitamin B-12) 1,000 mcg PO DAILY 10/04/24 10/04/24 History [Vitamin B-12] Magnesium Oxide [Mag-Ox] 250 mg PO BID 10/04/24 10/04/24 History amLODIPine [Norvasc] 10 mg PO DAILY 10/04/24 10/04/24 History Docusate [Colace] 100 mg PO DAILY #10 capsule 03/13/25 Rx Nystatin 100,000Unit/gm Cream 1 applic TOPICAL BID #30 gm 03/13/25 Rx [Mycostatin Cream] Pantoprazole [Protonix] 40 mg PO DAILY #10 tab 03/13/25 Rx Allergies Allergy/AdvReac Type Severity Reaction Status Date / Time No Known Allergies Allergy Verified 03/12/25 21:44 Physical Exam Vitals: Vital Signs Temp Pulse Resp BP Pulse Ox 03/13/25 07:00 98 F 72 16 118/78 99 03/13/25 05:04 98.3 F 65 16 108/72 98 03/13/25 01:50 97.9 F 58 L 14 123/80 100 03/12/25 21:40 98.0 F 68 18 138/88 100 Intake and Output 03/12/25 03/13/25 03/13/25 22:59 06:59 14:59 Other: Voiding Method Toilet Weight 69.853 kg Results CBC & Chem 7: 03/13/25 01:19 03/13/25 01:19 Labs: Abnormal Lab Results - Last 24 Hours (Table) 03/12/25 03/13/25 Range/Units 21:57 01:19 Glucose 105 H (74-99) mg/dL Lipase 2256 H (23-300) U/L Urine Blood Trace H (Negative) Urine Bacteria Rare H (None) /hpf Urine Yeast (Budding) Rare H (None) /hpf
[2025-03-13] MEDS: NYSTATIN 100,000UNIT/GM CREAM 30 GM TUBE TOPICAL SCH (11:25)
--- NOTE | 2025-03-13 11:25 | P.DS ---
Providers Date of admission: 03/13/25 05:36 Attending physician: Jj Lopez MD Primary care physician: Physician Nonstaff Hospital Course: 49-year-old female with known history of hypertension came with complaints of a bilateral intermittent flank pain radiating to the groin area. Patient denies any dysuria increased urinary frequency or urgency. He urine showed Leanna. Patient denied any fever or chills. Patient pain was a 10/10 in severity completely resolved at this time patient is able to tolerate diet at that time. CT of the abdomen was done which did not show any pancreatitis but her lipase is elevated to 2222. Although patient may have gallstones. As per the patient this is chronic and has been there for a long time. REVIEW OF SYSTEMS: All other systems are negative except those mentioned in the HPI PHYSICAL EXAMINATION: GENERAL: The patient is alert and oriented x3, not in any acute distress. Well developed, well nourished. HEENT: Pupils are round and equally reacting to light. EOMI. No scleral icterus. No conjunctival pallor. Normocephalic, atraumatic. No pharyngeal erythema. No thyromegaly. CARDIOVASCULAR: S1 and S2 present. No murmurs, rubs, or gallops. PULMONARY: Chest is clear to auscultation, no wheezing or crackles. ABDOMEN: Soft, nontender, nondistended, normoactive bowel sounds. No palpable organomegaly. MUSCULOSKELETAL: No joint swelling or deformity. EXTREMITIES: No cyanosis, clubbing, or pedal edema. NEUROLOGICAL: Gross neurological examination did not reveal any focal deficits. SKIN: No rashes. Assessment and plan -Abdominal pain her symptoms are consistent with renal calculi although there is no renal calculi that was found on the CAT scan. Patient may have passed the stone by the time she got the CAT scan. - Elevated lipase possibility of pancreatitis cannot be ruled out although there is no edema around the pancreas on the CAT scan. Patient does have a 1.6 cm gallstone which is chronic. Patient was able to tolerate diet today. As he is able to tolerate diet I will discharge the patient with referral to general surgery. Patient is wishing to go home - Possible vaginal candidiasis for which patient will be discharged on Mycostatin cream - Hypertension Patient wishes to go home because of which have not doing any further testing patient will be discharged as she is able to tolerate the diet but she is asked to come back if her pain comes back Patient Condition at Discharge: Fair Plan - Discharge Summary New Discharge Prescriptions: New Docusate [Colace] 100 mg PO DAILY #10 capsule Pantoprazole [Protonix] 40 mg PO DAILY #10 tab Miconazole Nitrate 4%/2% [Monistat 3 Vaginal] 1 supp VAGINAL HS #3 kit No Action Magnesium Oxide [Mag-Ox] 250 mg PO BID Cyanocobalamin (Vitamin B-12) [Vitamin B-12] 1,000 mcg PO DAILY amLODIPine [Norvasc] 10 mg PO DAILY Cholecalciferol (Vitamin D3) [Vitamin D3 (50 Mcg = 2000 Iu)] 50 mcg PO DAILY Discharge Medication List Cholecalciferol (Vitamin D3) [Vitamin D3 (50 Mcg = 2000 Iu)] 50 mcg PO DAILY 10/04/24 [History] Cyanocobalamin (Vitamin B-12) [Vitamin B-12] 1,000 mcg PO DAILY 10/04/24 [History] Magnesium Oxide [Mag-Ox] 250 mg PO BID 10/04/24 [History] amLODIPine [Norvasc] 10 mg PO DAILY 10/04/24 [History] Docusate [Colace] 100 mg PO DAILY #10 capsule 03/13/25 [Rx] Miconazole Nitrate 4%/2% [Monistat 3 Vaginal] 1 supp VAGINAL HS #3 kit 03/13/25 [Rx] Pantoprazole [Protonix] 40 mg PO DAILY #10 tab 03/13/25 [Rx] Follow up Appointment(s)/Referral(s): Taiwo Hairston MD [Medical Doctor] - 1 Week Regina De La Torre MD [STAFF PHYSICIAN] - 1 Week Discharge Disposition: HOME SELF-CARE
[2025-03-13 11:37] VITALS: BP 113/70; PULSE 69; RESP 18; TEMP 98.1
== END 2025-03-13 11:40 | disposition home or self-care (01) ==
LOC: EC 21:36 → UNDOADMIN 03-13 05:36 → 5NMEDONC 03-13 05:36 → EC 03-13 11:40 → UNDODISIN 03-13 11:40
DX: K59.00 Constipation, unspecified (principal); K80.20 Calculus of gallbladder without cholecystitis without obstruction; K85.90 Acute pancreatitis without necrosis or infection, unspecified
CPT/HCPCS: 36415; 80053; 83605; 83690; 85025; 81001; 81025; 74176; 99284; 96372; 96360; 96361; J2270; J1885

== ENCOUNTER 2025-03-17 19:02 | Emergency (ER) | payer OTHER ==
[2025-03-17 19:06] VITALS: RESP 18
--- NOTE | 2025-03-17 19:32 | ED ---
Abdominal Pain HPI - General Source: family Mode of arrival: ambulatory Limitations: no limitations <Ezequiel Diop - Last Filed: 03/17/25 19:31> - General Source: family, RN notes reviewed, old records reviewed Mode of arrival: ambulatory Limitations: no limitations - History of Present Illness MD Complaint: abdominal pain -: days(s) Location: RUQ Radiation: RUQ Migration to: suprapubic Severity: moderate Severity scale (1-10): 7 Quality: stabbing Consistency: constant Improves With: nothing Worsens With: nothing Associated Symptoms: nausea Treatments Prior to Arrival: other <Jordan Hamilton - Last Filed: 03/21/25 22:12> - General Chief Complaint: Abdominal Pain Stated Complaint: ABD Pain Time Seen by Provider: 03/17/25 19:31 - History of Present Illness Initial Comments: 49-year-old female presenting with chief complaint of abdominal pain. Pain is across the upper abdomen. She was admitted here this weekend with pancreatitis and discharged after 1 day. Patient does also have gallstones, there was no evidence of obstruction during the time of her admission. No vomiting. (Ezequiel Diop) This is a 49-year-old female to the ER for evaluation abdominal pain severe abdominal pain with recent pancreatitis evaluation. Patient states she feels feels like she has persistent abdominal pain since the event was into the ER for reevaluation of her lipase (Jrodan Hamilton) - Related Data Home Medications Medication Instructions Recorded Confirmed Cholecalciferol (Vitamin D3) 50 mcg PO DAILY 10/04/24 10/04/24 [Vitamin D3 (50 Mcg = 2000 Iu)] Cyanocobalamin (Vitamin B-12) 1,000 mcg PO DAILY 10/04/24 10/04/24 [Vitamin B-12] Magnesium Oxide [Mag-Ox] 250 mg PO BID 10/04/24 10/04/24 amLODIPine [Norvasc] 10 mg PO DAILY 10/04/24 10/04/24 Previous Rx's Medication Instructions Recorded Docusate [Colace] 100 mg PO DAILY #10 capsule 03/13/25 HYDROcodone/APAP 5-325MG [[place] 1 tab PO Q6HR PRN 5 Days #20 tab 03/13/25 5-325] Miconazole Nitrate 4%/2% [Monistat 1 supp VAGINAL HS #3 kit 03/13/25 3 Vaginal] Pantoprazole [Protonix] 40 mg PO DAILY #10 tab 03/13/25 Allergies Allergy/AdvReac Type Severity Reaction Status Date / Time No Known Allergies Allergy Verified 03/17/25 19:06 Review of Systems ROS Other: All systems not noted in ROS Statement are negative. <Ezequiel Diop - Last Filed: 03/17/25 19:31> ROS Other: All systems not noted in ROS Statement are negative. <Jordan Hamilton - Last Filed: 03/21/25 22:12> ROS Statement: Those systems with pertinent positive or pertinent negative responses have been documented in the HPI. Past Medical History Past Medical History: Hypertension History of Any Multi-Drug Resistant Organisms: None Reported Past Surgical History: Section Past Anesthesia/Blood Transfusion Reactions: No Reported Reaction Past Psychological History: No Psychological Hx Reported Smoking Status: Never smoker Past Alcohol Use History: None Reported Past Drug Use History: None Reported <Ezequiel Diop - Last Filed: 03/17/25 19:31> General Exam Limitations: no limitations <Ezequiel Diop - Last Filed: 03/17/25 19:31> General appearance: alert, in no apparent distress Head exam: Present: atraumatic, normocephalic, normal inspection Eye exam: Present: normal appearance, PERRL, EOMI. Absent: scleral icterus, conjunctival injection, periorbital swelling ENT exam: Present: normal exam, mucous membranes moist Neck exam: Present: normal inspection. Absent: tenderness, meningismus, lymphadenopathy Respiratory exam: Present: normal lung sounds bilaterally. Absent: respiratory distress, wheezes, rales, rhonchi, stridor Cardiovascular Exam: Present: regular rate, normal rhythm, normal heart sounds. Absent: systolic murmur, diastolic murmur, rubs, gallop, clicks GI/Abdominal exam: Present: soft, normal bowel sounds. Absent: distended, tenderness, guarding, rebound, rigid Extremities exam: Present: normal inspection, full ROM, normal capillary refill. Absent: tenderness, pedal edema, joint swelling, calf tenderness Back exam: Present: normal inspection Neurological exam: Present: alert, oriented X3, CN II-XII intact Psychiatric exam: Present: normal affect, normal mood Skin exam: Present: warm, dry, intact, normal color. Absent: rash <Jordan Hamilton - Last Filed: 03/21/25 22:12> - General Exam Comments Initial Comments: Visual Physical Exam Vital signs reviewed General: Well-appearing, nontoxic, no acute distress. Head: Normocephalic, atraumatic Eyes: PERRLA, EOMI ENT: Airway patent Chest: Nonlabored breathing Skin: No visual rash, normal skin tone Neuro: Alert and oriented 3 Musculoskeletal: No gross abnormalities (Ezequiel Diop) Course <Jordan Hamilton - Last Filed: 03/21/25 22:12> Vital Signs 03/17/25 03/17/25 03/18/25 19:04 23:52 00:00 Temperature 99.1 F 97.9 F Pulse Rate 64 65 Respiratory 18 18 Rate Blood Pressure 136/83 126/78 125/79 O2 Sat by Pulse 100 Oximetry 03/18/25 03/18/25 01:00 02:01 Temperature 98.0 F Pulse Rate 71 Respiratory 18 Rate Blood Pressure 136/85 115/68 O2 Sat by Pulse 100 Oximetry - Reevaluation(s) Reevaluation #1: Medical records reviewed (Jordan Hamilton) Reevaluation #2: Patient symptoms are improved here in the ER (Jordan Hamilton) Reevaluation #3: Patient informed of results and questions answered (Jordan Hamilton) Reevaluation #4: Was pt. sent in by a medical professional or institution (, PA, B[employer]ER, urgent care, hospital, or long-term...) When possible be specific @ -no Did you speak to anyone other than the patient for history (EMS, parent, family, police, friend...)? What history was obtained from this source @ -no Did you review nursing and triage notes (agree or disagree)? Why? @ -agree Are old charts reviewed (outside hosp., previous admission, EMS record, old EKG, old radiological studies, urgent care reports/EKG's, long-term records)? Report findings @ -yes Differential Diagnosis (chest pain, altered mental status, abdominal pain women, abdominal pain men, vaginal bleeding, weakness, fever, dyspnea, syncope, headache, dizziness, GI bleed, back pain, seizure, CVA, palpatations, mental health, musculoskeletal)? @ -prior EKG interpreted by me (3pts min.). @ -yes X-rays interpreted by me (1pt min.). @ -no CT interpreted by me (1pt min.). @ -no U/S interpreted by me (1pt. min.). @ -yes negative for acute disease What testing was considered but not performed or refused? (CT, X-rays, U/S, labs)? Why? @ -none What meds were considered but not given or refused? Why? @ -none Did you discuss the management of the patient with other professionals (professionals i.e. Dr., PA, B[employer], lab, RT, psych nurse, psychiatric social worker supervisor, guest experience representative, teacher, job placement officer, rn case mgr)? Give summary @ -no Was smoking cessation discussed for >3mins.? @ -no Was critical care preformed (if so, how long)? @ -no Were there social determinants of health that impacted care today? How? (Homelessness, low income, unemployed, alcoholism, drug addiction, transportation, low edu. Level, literacy, decrease access to med. care, half-way, rehab)? @ -none Was there de-escalation of care discussed even if they declined (Discuss DNR or withdrawal of care, Hospice)? DNR status @ -no What co-morbidities impacted this encounter? (DM, HTN, Smoking, COPD, CAD, Cancer, CVA, ARF, Chemo, Hep., AIDS, mental health diagnosis, sleep apnea, morbid obesity)? @ -none Was patient admitted / discharged? Hospital course, mention meds given and route, prescriptions, significant lab abnormalities, going to OR and other pertinent info. @ - 49 female with nonspecific abdominal pain abdominal pain here patient symptoms are improved throughout ER stay patient feels well can be discharged home Discharge Undiagnosed new problem with uncertain prognosis? @ -no Drug Therapy requiring intensive monitoring for toxicity (Heparin, Nitro, Insulin, Cardizem)? @ -no Were any procedures done? @ -no Diagnosis/symptom? @ -abdominal pain with biliary colic Acute, or Chronic, or Acute on Chronic? @ -Acute Uncomplicated (without systemic symptoms) or Complicated (systemic symptoms)? @ -Complicated Side effects of treatment? @ -no Exacerbation, Progression, or Severe Exacerbation? @ -exacerbation Poses a threat to life or bodily function? How? (Chest pain, [place], [place], pneumonia, PE, COPD, DKA, ARF, appy, cholecystitis, CVA, Diverticulitis, Homicidal, Suicidal, threat to staff... and all critical care pts) @ -no (Jordan Hamilton) Reevaluation #5: Differential Abdominal Pain Women: Appendicitis, Cholecystitis, diverticulosis, ischemic bowel, pancreatitis, hepatitis, UTI, gastroenteritis, AAA, incarcerated hernia, bowel obstruction, constipation, inflammatory bowel, hepatitis, peptic ulcer disease, splenic infarction, perforated viscus, vulvitis, ovarian torsion, PID, kidney stone, placenta abruption, this is not meant to be an all-inclusive list (Jordan Hamilton) Medical Decision Making <Ezequiel Diop - Last Filed: 03/17/25 19:31> - Lab Data Result diagrams: 03/18/25 00:28 03/18/25 00:28 - EKG Data -: EKG Interpreted by Me (EKG sinus 66 IL 189 QRS 90 QTc 406) - Radiology Data Radiology results: report reviewed (Ultrasound gallbladder is negative for acute disease), image reviewed <Jordan Hamilton - Last Filed: 03/21/25 22:12> - Medical Decision Making I performed the quick note portion of this visit, electronically signed Ezequiel Diop PA-C (Ezequiel Diop) 49 female with nonspecific abdominal pain abdominal pain here patient symptoms are improved throughout ER stay patient feels well can be discharged home (Jordan Hamilton) - Lab Data Lab Results 03/18/25 03/18/25 03/18/25 Range/Units 00:28 00:28 00:28 WBC 8.25 (4.50-10.00) 10*3/uL RBC 4.52 (4.10-5.20) 10*6/uL Hgb 13.2 (12.0-15.0) g/dL Hct 37.9 (37.2-46.3) % MCV 83.8 (80.0-97.0) fL MCH 29.2 (27.0-32.0) pg MCHC 34.8 (32.0-37.0) g/dL Plt Count 179 (140-440) 10*3/uL MPV 11.5 (9.5-12.2) fL Immature Gran % (Auto) 0.2 % Neutrophils % 50.5 % Lymphocytes % 40.0 % Monocytes % 6.7 % Eosinophils % 1.9 % Basophils % 0.7 % Immature Gran # 0.02 (0.00-0.04) 10*3/uL Neutrophils # 4.16 (1.80-7.70) 10*3/uL Lymphocytes # 3.30 (0.90-5.00) 10*3/uL Monocytes # 0.55 (0.20-1.00) 10*3/uL Eosinophils # 0.16 (0.04-0.35) 10*3/uL Basophils # 0.06 (0.00-0.10) 10*3/uL Sodium 137 (137-145) mmol/L Potassium 3.8 (3.5-5.1) mmol/L Chloride 105 (98-107) mmol/L Carbon Dioxide 23 (22-30) mmol/L Anion Gap 9 mmol/L BUN 15 (7-17) mg/dL Creatinine 0.50 L (0.52-1.04) mg/dL Est GFR (CKD-EPI)AfAm >90 (>60 ml/min/1.73 sqM) Est GFR (CKD-EPI)NonAf >90 (>60 ml/min/1.73 sqM) Glucose 89 (74-99) mg/dL Plasma Lactic Acid [place] 0.7 (0.7-2.0) mmol/L Calcium 9.7 (8.4-10.2) mg/dL Phosphorus 4.3 (2.5-4.5) mg/dL Magnesium 1.9 (1.6-2.3) mg/dL Total Bilirubin 0.6 (0.2-1.3) mg/dL AST 17 (14-36) U/L ALT 15 (4-34) U/L Alkaline Phosphatase 81 (38-126) U/L Troponin I (0.000-0.034) ng/mL Total Protein 6.8 (6.3-8.2) g/dL Albumin 4.1 (3.5-5.0) g/dL Amylase 74 (30-110) U/L Lipase 112 (23-300) U/L Urine Color Urine Appearance (Clear) Urine pH (5.0-8.0) Ur Specific [place] (1.001-1.035) Urine Protein (Negative) Urine Glucose (UA) (Negative) Urine Ketones (Negative) Urine Blood (Negative) Urine Nitrite (Negative) Urine Bilirubin (Negative) Urine Urobilinogen (<2.0) mg/dL Ur Leukocyte Esterase (Negative) Urine RBC (0-5) /hpf Urine WBC (0-5) /hpf Ur Squamous Epith Cells (0-4) /hpf Urine Bacteria (None) /hpf Urine Mucus (None) /hpf 03/18/25 03/18/25 Range/Units 00:28 00:56 WBC (4.50-10.00) 10*3/uL RBC (4.10-5.20) 10*6/uL Hgb (12.0-15.0) g/dL Hct (37.2-46.3) % MCV (80.0-97.0) fL MCH (27.0-32.0) pg MCHC (32.0-37.0) g/dL Plt Count (140-440) 10*3/uL MPV (9.5-12.2) fL Immature Gran % (Auto) % Neutrophils % % Lymphocytes % % Monocytes % % Eosinophils % % Basophils % % Immature Gran # (0.00-0.04) 10*3/uL Neutrophils # (1.80-7.70) 10*3/uL Lymphocytes # (0.90-5.00) 10*3/uL Monocytes # (0.20-1.00) 10*3/uL Eosinophils # (0.04-0.35) 10*3/uL Basophils # (0.00-0.10) 10*3/uL Sodium (137-145) mmol/L Potassium (3.5-5.1) mmol/L Chloride (98-107) mmol/L Carbon Dioxide (22-30) mmol/L Anion Gap mmol/L BUN (7-17) mg/dL Creatinine (0.52-1.04) mg/dL Est GFR (CKD-EPI)AfAm (>60 ml/min/1.73 sqM) Est GFR (CKD-EPI)NonAf (>60 ml/min/1.73 sqM) Glucose (74-99) mg/dL Plasma Lactic Acid [place] (0.7-2.0) mmol/L Calcium (8.4-10.2) mg/dL Phosphorus (2.5-4.5) mg/dL Magnesium (1.6-2.3) mg/dL Total Bilirubin (0.2-1.3) mg/dL AST (14-36) U/L ALT (4-34) U/L Alkaline Phosphatase (38-126) U/L Troponin I <0.012 (0.000-0.034) ng/mL Total Protein (6.3-8.2) g/dL Albumin (3.5-5.0) g/dL Amylase (30-110) U/L Lipase (23-300) U/L Urine Color Light Yellow Urine Appearance Clear (Clear) Urine pH 6.0 (5.0-8.0) Ur Specific [place] 1.020 (1.001-1.035) Urine Protein Negative (Negative) Urine Glucose (UA) Negative (Negative) Urine Ketones Negative (Negative) Urine Blood Small H (Negative) Urine Nitrite Negative (Negative) Urine Bilirubin Negative (Negative) Urine Urobilinogen <2.0 (<2.0) mg/dL Ur Leukocyte Esterase Negative (Negative) Urine RBC 8 H (0-5) /hpf Urine WBC 2 (0-5) /hpf Ur Squamous Epith Cells <1 (0-4) /hpf Urine Bacteria Rare H (None) /hpf Urine Mucus Rare H (None) /hpf Disposition <Ezequiel Diop - Last Filed: 03/17/25 19:31> Is patient prescribed a controlled substance at d/c from ED?: No Time of Disposition: 01:30 <Jordan Hamilton - Last Filed: 03/21/25 22:12> Clinical Impression: Abdominal pain, Biliary colic, Chest pain Disposition: HOME SELF-CARE Condition: Good Instructions (If sedation given, give patient instructions): Biliary Colic (ED) Referrals: Nonstaff,Physician [Primary Care Provider] - 1-2 days Brittany Torres MD [STAFF PHYSICIAN] - 1-2 days
[2025-03-18] MEDS: SODIUM CHLORIDE 0.9% 1,000 ML IV ONE (00:34)
[2025-03-18] MEDS: KETOROLAC 15 MG/ML 1 ML VIAL IVP STA (00:37)
[2025-03-18] MEDS: ONDANSETRON 4 MG/2 ML VIAL IVP STA (00:41)
[2025-03-18 00:42] LABS: Basophils # (A) 0.06 10*3/uL (0.00-0.10); Basophils % (A) 0.7 %; Eosinophils # (A) 0.16 10*3/uL (0.04-0.35); Eosinophils % (A) 1.9 %; HCT 37.9 % (37.2-46.3); HGB 13.2 g/dL (12.0-15.0); MCH 29.2 pg (27.0-32.0); MCHC 34.8 g/dL (32.0-37.0); MCV 83.8 fL (80.0-97.0); Mean Platelet Volume 11.5 fL (9.5-12.2); Monocytes # (A) 0.55 10*3/uL (0.20-1.00); Monocytes % (A) 6.7 %; Neutrophils # (A) 4.16 10*3/uL (1.80-7.70); Neutrophils % (A) 50.5 %; Platelet Count 179 10*3/uL (140-440); RBC 4.52 10*6/uL (4.10-5.20); RDW 12.4 % (11.5-14.5); WBC 8.25 10*3/uL (4.50-10.00)
--- NOTE | 2025-03-18 01:04 | US ---
EXAM: US Abdomen Limited, Gallbladder CLINICAL HISTORY: US Reason: pain TECHNIQUE: Real-time ultrasound of the right upper quadrant with image documentation. COMPARISON: CT scan from March 12, 2025 FINDINGS: Liver: The liver measures 17.5 cm. No focal liver lesion is seen. Gallbladder: There is a 2.2 cm shadowing stone within a nondilated gallbladder. The wall thickness is normal. No surrounding fluid is seen. Common bile duct: The common bile duct is nondilated measuring 5 mm. Pancreas: The visualized portion of the pancreas is unremarkable. Right kidney: The right kidney measures 10.9 cm with normal appearance. No hydronephrosis. Inferior vena cava: The IVC is unremarkable. Free fluid: No free fluid. IMPRESSION: There is a 2.2 cm shadowing stone within a nondilated gallbladder. The wall thickness is normal. No surrounding fluid is seen.
[2025-03-18 01:24] LABS: Appearance,Urine Clear (Clear); Bacteria,Urine Rare /hpf; Bilirubin,Urine Negative (Negative); Blood,Urine Small (Negative); Color,Urine Light Yellow; Glucose,Urine (UA) Negative (Negative); Ketones,Urine Negative (Negative); Leukocyte Esterase,Urine Negative (Negative); Mucus,Urine Rare /hpf; Nitrite,Urine Negative (Negative); Protein,Urine Negative (Negative); RBC,Urine 8 /hpf (0-5); Squamous Epithelial Cell,Urine <1 /hpf (0-4); Urobilinogen,Urine <2.0 mg/dL (<2.0); WBC,Urine 2 /hpf (0-5)
[2025-03-18 01:24] LABS: ALT 15 U/L (4-34); AST 17 U/L (14-36); African American GFR (CKD) >90 (>60 ml/min/1.73 sqM); Albumin 4.1 g/dL (3.5-5.0); Alkaline Phosphatase 81 U/L (38-126); Amylase 74 U/L (30-110); Anion Gap 9 mmol/L; Blood Urea Nitrogen 15 mg/dL (7-17); Calcium 9.7 mg/dL (8.4-10.2); Carbon Dioxide 23 mmol/L (22-30); Chloride 105 mmol/L (98-107); Glucose 89 mg/dL (74-99); Lipase 112 U/L (23-300); Magnesium 1.9 mg/dL (1.6-2.3); Non-African American GFR(CKD) >90 (>60 ml/min/1.73 sqM); Phosphorus 4.3 mg/dL (2.5-4.5); Potassium 3.8 mmol/L (3.5-5.1); Sodium 137 mmol/L (137-145); Total Bilirubin 0.6 mg/dL (0.2-1.3); Total Protein 6.8 g/dL (6.3-8.2)
[2025-03-18] MEDS: ONDANSETRON 4 MG ODT STARTER PACK 2 TAB BTL PO STA (01:56)
[2025-03-18] MEDS: traMADol 50 MG STARTER PACK 3 TAB BTL PO STA (01:56)
[2025-03-18 02:13] VITALS: BP 115/68; PULSE 71; TEMP 98
== END 2025-03-18 02:15 | disposition home or self-care (01) ==
LOC: EC 19:02
DX: K80.50 Calculus of bile duct without cholangitis or cholecystitis without obstruction (principal); R07.9 Chest pain, unspecified
CPT/HCPCS: 36415; 93005; 80053; 82150; 83605; 83690; 83735; 84100; 84484; 85025; 81001; 76705; 99285; 96374; 96375; 96361; J2405; J1885; S0119

== ENCOUNTER 2025-05-20 23:28 | Emergency (ER) | payer OTHER ==
[2025-05-20 23:36] VITALS: TEMP 97.9
[2025-05-21] MEDS: diphenhydrAMINE 50 MG/ML 1 ML VIAL IVP STA (00:44)
[2025-05-21] MEDS: METOCLOPRAMIDE 5 MG/ML 2 ML VIAL IVP STA (00:45)
[2025-05-21] MEDS: KETOROLAC 15 MG/ML 1 ML VIAL IVP STA (00:45)
[2025-05-21] MEDS: SODIUM CHLORIDE 0.9% 500 ML 500 ML IV STA (00:46)
[2025-05-21 00:57] LABS: Basophils # (A) 0.07 10*3/uL (0.00-0.10); Basophils % (A) 1.0 %; Eosinophils # (A) 0.28 10*3/uL (0.04-0.35); Eosinophils % (A) 3.8 %; HCT 35.9 % (37.2-46.3); HGB 12.5 g/dL (12.0-15.0); Lymphocytes # (A) 3.30 10*3/uL (0.90-5.00); Lymphocytes % (A) 45.1 %; MCH 29.1 pg (27.0-32.0); MCHC 34.8 g/dL (32.0-37.0); MCV 83.7 fL (80.0-97.0); Monocytes # (A) 0.46 10*3/uL (0.20-1.00); Monocytes % (A) 6.3 %; Neutrophils # (A) 3.20 10*3/uL (1.80-7.70); Neutrophils % (A) 43.7 %; Platelet Count 221 10*3/uL (140-440); RBC 4.29 10*6/uL (4.10-5.20); RDW 12.5 % (11.5-14.5); WBC 7.32 10*3/uL (4.50-10.00)
[2025-05-21 01:05] LABS: ALT 19 U/L (4-34); AST 20 U/L (14-36); African American GFR (CKD) >90 (>60 ml/min/1.73 sqM); Albumin 4.0 g/dL (3.5-5.0); Alkaline Phosphatase 101 U/L (38-126); Anion Gap 10 mmol/L; Blood Urea Nitrogen 17 mg/dL (7-17); Calcium 9.8 mg/dL (8.4-10.2); Carbon Dioxide 25 mmol/L (22-30); Chloride 103 mmol/L (98-107); Glucose 98 mg/dL (74-99); Non-African American GFR(CKD) >90 (>60 ml/min/1.73 sqM); Potassium 3.7 mmol/L (3.5-5.1); Sodium 138 mmol/L (137-145); Total Protein 6.6 g/dL (6.3-8.2)
--- NOTE | 2025-05-21 01:59 | ED ---
Headache HPI - General Chief Complaint: Headache Stated Complaint: headache high BP Time Seen by Provider: 05/20/25 23:51 Mode of arrival: ambulatory Limitations: no limitations - History of Present Illness Initial Comments: 50-year-old female here with her son with chief complaint of headache and concerns for low potassium. Patient states that normally when she has low potassium she gets a similar headache. She states that she used to be on a diuretic and was taken off of the medication due to low potassium and now occasionally still gets episodes of low potassium. Some nausea no vomiting - Related Data Home Medications Medication Instructions Recorded Confirmed Cholecalciferol (Vitamin D3) 50 mcg PO DAILY 10/04/24 10/04/24 [Vitamin D3 (50 Mcg = 2000 Iu)] Cyanocobalamin (Vitamin B-12) 1,000 mcg PO DAILY 10/04/24 10/04/24 [Vitamin B-12] Magnesium Oxide [Mag-Ox] 250 mg PO BID 10/04/24 10/04/24 amLODIPine [Norvasc] 10 mg PO DAILY 10/04/24 10/04/24 Previous Rx's Medication Instructions Recorded Docusate [Colace] 100 mg PO DAILY #10 capsule 03/13/25 HYDROcodone/APAP 5-325MG [[place] 1 tab PO Q6HR PRN 5 Days #20 tab 03/13/25 5-325] Miconazole Nitrate 4%/2% [Monistat 1 supp VAGINAL HS #3 kit 03/13/25 3 Vaginal] Pantoprazole [Protonix] 40 mg PO DAILY #10 tab 03/13/25 Butalb/APAP/Caff 50-325-40Mg 1 tab PO Q4H PRN #12 tablet 05/21/25 [Fioricet 50-325-40] Allergies Allergy/AdvReac Type Severity Reaction Status Date / Time No Known Allergies Allergy Verified 05/20/25 23:36 Review of Systems ROS Statement: Those systems with pertinent positive or pertinent negative responses have been documented in the HPI. ROS Other: All systems not noted in ROS Statement are negative. Past Medical History Past Medical History: Hypertension History of Any Multi-Drug Resistant Organisms: None Reported Past Surgical History: Section Past Anesthesia/Blood Transfusion Reactions: No Reported Reaction Past Psychological History: No Psychological Hx Reported Smoking Status: Never smoker Past Alcohol Use History: None Reported Past Drug Use History: None Reported General Exam Limitations: no limitations General appearance: alert, in no apparent distress Head exam: Present: atraumatic, normocephalic, normal inspection Eye exam: Present: normal appearance, PERRL, EOMI. Absent: periorbital swelling Pupils: Present: normal accommodation Neck exam: Present: normal inspection. Absent: meningismus Respiratory exam: Present: normal lung sounds bilaterally. Absent: respiratory distress, wheezes, rales, rhonchi, stridor Cardiovascular Exam: Present: regular rate, normal rhythm, normal heart sounds. Absent: systolic murmur, diastolic murmur, rubs, gallop, clicks Neurological exam: Present: alert, oriented X3 Expanded Patient oriented to: Present: person, place, time Speech: Present: fluid speech Cranial nerves: EOM's Intact: Normal Sensory exam: Upper Extremity Light Touch: Normal, Lower Extremity Light Touch: Normal Motor strength exam: RUE: 5, LUE: 5, RLE: 5, LLE: 5 Eye Response: (4) open spontaneously Motor Response: (6) obeys commands Verbal Response: (5) oriented [place] Total: 15 Psychiatric exam: Present: normal affect, normal mood Skin exam: Present: warm, dry, normal color Course Vital Signs 05/20/25 05/21/25 05/21/25 23:34 00:36 02:39 Temperature 97.9 F Pulse Rate 65 87 56 L Respiratory 18 18 16 Rate Blood Pressure 144/87 144/88 142/84 O2 Sat by Pulse 100 100 98 Oximetry Medical Decision Making - Medical Decision Making Was pt. sent in by a medical professional or institution (, PA, RETREAD SUPERVISOR, urgent care, hospital, or correction...) When possible be specific @ -No Did you speak to anyone other than the patient for history (EMS, parent, family, police, friend...)? What history was obtained from this source @ -Son is serving as seed district sales manager Did you review nursing and triage notes (agree or disagree)? Why? @ -I reviewed and agree with nursing and triage notes Were old charts reviewed (outside hosp., previous admission, EMS record, old EKG, old radiological studies, urgent care reports/EKG's, correction records)? Report findings @ -No old charts were reviewed Differential Diagnosis (chest pain, altered mental status, abdominal pain women, abdominal pain men, vaginal bleeding, weakness, fever, dyspnea, syncope, headache, dizziness, GI bleed, back pain, seizure, CVA, palpatations, mental health, musculoskeletal)? @ -MDM Differential Headache: Migraine, tension, cluster, carbon monoxide, central venous thrombosis, pension karma temporal arteritis, acute closure glaucoma, intercranial hemorrhage, mastoiditis, sinusitis, head injury… this is not meant to be an all-inclusive list. EKG interpreted by me (3pts min.). @ -EKG shows sinus bradycardia ventricular rate 58. VT interval 190 QRS 93 QT 420 QTc 416 X-rays interpreted by me (1pt min.). @ -None done CT interpreted by me (1pt min.). @ -None done U/S interpreted by me (1pt. min.). @ -None done What testing was considered but not performed or refused? (CT, X-rays, U/S, labs)? Why? @ -None What meds were considered but not given or refused? Why? @ -None Did you discuss the management of the patient with other professionals (professionals i.e. , PA, RETREAD SUPERVISOR, lab, RT, psych nurse, health and social care teacher, damage prevention coordinator, teacher, unclaimed property officer, rn case manager hospice)? Give summary @ -No Was smoking cessation discussed for >3mins.? @ -No Was critical care preformed (if so, how long)? @ -No Were there social determinants of health that impacted care today? How? (Homelessness, low income, unemployed, alcoholism, drug addiction, transportation, low edu. Level, literacy, decrease access to med. care, long term, rehab)? @ -No Was there de-escalation of care discussed even if they declined (Discuss DNR or withdrawal of care, Hospice)? DNR status @ -No What co-morbidities impacted this encounter? (DM, HTN, Smoking, COPD, CAD, Cancer, CVA, ARF, Chemo, Hep., AIDS, mental health diagnosis, sleep apnea, morbid obesity)? @ -None Was patient admitted / discharged? Hospital course, mention meds given and route, prescriptions, significant lab abnormalities, going to OR and other pertinent info. @ -50-year-old female presented chief complaint of headache and concern for low potassium. History and physical examination are conducted. No focal neurological deficits and GCS is 15. Potassium is 3.7. On reassessment patient reports that her headache is improved. She is educated on today's findings. Follow-up with PCP. Report back to ER with any new or worsening symptoms. Discussed return parameters and answered all questions. Patient conveyed verbal understanding and agreed to the plan. I discussed this case in detail with my attending Dr. Dia Undiagnosed new problem with uncertain prognosis? @ -No Drug Therapy requiring intensive monitoring for toxicity (Heparin, Nitro, In sulin, Cardizem)? @ -No Were any procedures done? @ -No Diagnosis/symptom? @ -Headache Acute, or Chronic, or Acute on Chronic? @ -Acute Uncomplicated (without systemic symptoms) or Complicated (systemic symptoms)? @ -Uncomplicated Side effects of treatment? @ -No Exacerbation, Progression, or Severe Exacerbation? @ -No Poses a threat to life or bodily function? How? (Chest pain, [place], [place], pneumonia, PE, COPD, DKA, ARF, appy, cholecystitis, CVA, Diverticulitis, Homicidal, Suicidal, threat to staff... and all critical care pts) @ -Unlikely - Lab Data Result diagrams: 05/21/25 00:41 05/21/25 00:41 Lab Results 05/21/25 05/21/25 Range/Units 00:41 00:41 WBC 7.32 (4.50-10.00) 10*3/uL RBC 4.29 (4.10-5.20) 10*6/uL Hgb 12.5 (12.0-15.0) g/dL Hct 35.9 L (37.2-46.3) % MCV 83.7 (80.0-97.0) fL MCH 29.1 (27.0-32.0) pg MCHC 34.8 (32.0-37.0) g/dL Plt Count 221 (140-440) 10*3/uL MPV 10.9 (9.5-12.2) fL Immature Gran % (Auto) 0.1 % Neutrophils % 43.7 % Lymphocytes % 45.1 % Monocytes % 6.3 % Eosinophils % 3.8 % Basophils % 1.0 % Immature Gran # 0.01 (0.00-0.04) 10*3/uL Neutrophils # 3.20 (1.80-7.70) 10*3/uL Lymphocytes # 3.30 (0.90-5.00) 10*3/uL Monocytes # 0.46 (0.20-1.00) 10*3/uL Eosinophils # 0.28 (0.04-0.35) 10*3/uL Basophils # 0.07 (0.00-0.10) 10*3/uL Sodium 138 (137-145) mmol/L Potassium 3.7 (3.5-5.1) mmol/L Chloride 103 (98-107) mmol/L Carbon Dioxide 25 (22-30) mmol/L Anion Gap 10 mmol/L BUN 17 (7-17) mg/dL Creatinine 0.50 L (0.52-1.04) mg/dL Est GFR (CKD-EPI)AfAm >90 (>60 ml/min/1.73 sqM) Est GFR (CKD-EPI)NonAf >90 (>60 ml/min/1.73 sqM) Glucose 98 (74-99) mg/dL Calcium 9.8 (8.4-10.2) mg/dL Total Bilirubin 0.3 (0.2-1.3) mg/dL AST 20 (14-36) U/L ALT 19 (4-34) U/L Alkaline Phosphatase 101 (38-126) U/L Total Protein 6.6 (6.3-8.2) g/dL Albumin 4.0 (3.5-5.0) g/dL Disposition Clinical Impression: Headache Disposition: HOME SELF-CARE Condition: Good Instructions (If sedation given, give patient instructions): Acute Headache (ED) Additional Instructions: Follow-up with your PCP. Report back to ER with any new or worsening symptoms. Prescriptions: Butalb/APAP/Caff 50-325-40Mg [Fioricet 50-325-40] 1 tab PO Q4H PRN #12 tablet PRN Reason: Headache Is patient prescribed a controlled substance at d/c from ED?: No Referrals: None,Stated [Primary Care Provider] - 1-2 days Forms: Area PCPs Time of Disposition: 01:58
[2025-05-21 02:42] VITALS: BP 142/84; PULSE 56; RESP 16
== END 2025-05-21 02:47 | disposition home or self-care (01) ==
LOC: EC 23:28
DX: R51.9 Headache, unspecified (principal)
CPT/HCPCS: 36415; 93005; 80053; 85025; 99284; 96374; 96375 ×2; J1200; J2765; J1885